=== PATIENT | male | born 1965 | race Caucasian/White ===

== ENCOUNTER → 2020-10-10 11:28 | Outpatient (BNVA) | payer OTHER, SELFPAY | PROVIDERS: Visit Provider Nurse Practitioner Family | DX: Z20.828 Contact with and (suspected) exposure to other viral communicable diseases (principal) | CPT/HCPCS: 87635 ==

== ENCOUNTER 2021-06-20 10:37 | Emergency (ER) | payer MEDICAID, SELFPAY ==
[2021-06-20 10:57] VITALS: BP 156/93; PULSE 81; RESP 16; TEMP 36.8; O2SAT 98; BMI 33.0
--- NOTE | 2021-06-20 11:02 | CT_ITS ---
WS: [id number] CT ABDOMEN AND PELVIS WITH CONTRAST HISTORY: RIGHT lower quadrant pain for 2 days. TECHNIQUE: Imaging performed of the abdomen and pelvis with IV contrast. Single phase imaging of the abdomen. Coronal and sagittal reformats are submitted. All CT scans at [facility] use at [address] one of these dose optimization techniques: automated exposure control; mA and/or kV adjustment per patient size (includes targeted exams where dose is matched to clinical indication); or iterative re construction. IV CONTRAST: Omnipaque 300; 95 mL IV. Oral contrast: No DLP: 1875.21 mGy.cm COMPARISON: None available. Lower thorax: Lung bases are clear. Heart is normal size. No hiatal hernia. Liver/biliary system: Normal size with no intrahepatic dilatation. Gallbladder: Normal. No gallstones or wall thickening. No pericholecystic fluid. Pancreas: Normal size pancreas and pancreatic duct. No adjacent inflammation. Spleen: Normal size spleen. No mass or infarct. Adrenal glands: Normal. Right kidney: Too small to characterize scattered hypodensities within the kidney. No obstruction or calcification. Left kidney: Too small to characterize hypodensities within the kidney. No obstruction or calcificati ons. No solid mass. Aorta: Mild atherosclerosis with no aneurysm. Lymphadenopathy: None. Free fluid: None. GI tract: 9 cm segment of sigmoid colon with circumferential wall thickening and pericolonic inflamma tion and numerous diverticula. No adjacent abscess or free air. The appendix is normal. No colonic ob struction. Abdominal wall: Postsurgical changes along the midline of the abdominal wall. No hernia. Pelvis: No free fluid or adenopathy within the pelvis. Bones: Unremarkable. CT/CT abdomen pelvis w con* [id number] IMPRESSION: 1. Acute sigmoid diverticulitis with no adjacent perforation or abscess. 2. Too small to characterize hypodensities within each kidney. These may be sm all cysts. No renal obstruction.
--- NOTE | 2021-06-20 11:03 | W.ED.ABDPA2 ---
HPI - Abdominal Pain General: Chief Complaint: Abdominal Pain Stated Complaint: RIGHT SIDE PAIN Time Seen by Provider: 06/20/21 10:39 History of Present Illness: HPI narrative: This patient is a 55-year-old male who presents to the emergency department for right lower quadrant abdominal pain. Patient states the pain started last week and he thought it was recurrent hernia on the right lower side. Patient was seen and examined local clinic and advised no hernia but was concerned for possible appendicitis. Patient was sent to the emergency department. Patient denies nausea vomiting. States loose stool this morning. States continues to hurt in the right lower quadrant. States he does not know if he has a fever but he felt real hot yesterday. Will do medical evaluation treat as needed MD elicited complaint: abdominal pain Pertinent past history: none Onset (ago): day(s) Pain Consistency: constant Location: RLQ Severity: moderate Radiation: none Migration to: no migration Exacerbating factors: nothing Relieving factors: nothing Associated Symptoms: Denies chills, dysuria, fever(s), nausea and vomiting Review of Systems General: Reports: 10 or more systems reviewed and unremarkable except in HPI and below Const: Denies: fever(s), chills, body aches or fatigue Eyes: Denies: change in vision or blurry vision ENMT: Denies: throat pain, hoarseness or mouth pain Card: Denies: chest pain, palpitations, irregular heart rhythm, edema, swelling of feet/ankles or lightheadedness Resp: Denies: dyspnea, productive cough, non-productive cough, wheezing or pain on inspiration GI: Reports: abdominal pain; Denies: nausea or vomiting : Denies: flank pain, dysuria, urinary frequency, urinary urgency or urinary hesitancy Musc: Denies: neck pain, back pain, extremity pain, extremity swelling, joint pain, joint swelling, joint redness, joint warmth or limited range of motion Skin/Breast: Denies: rash, pruritus, erythema or skin tenderness Neuro: Denies: headache(s), numbness in extremities or weakness in extremities Psych: Denies: anxiety or depression PFS ED PFSH: Social History Smoking and tobacco status: current every day smoker cigarettes Alcohol intake: never Physical Exam Const: COMMON NORMALS: no acute distress, average body habitus, patient oriented x3, no limitations, healthy appearing, alert and well nourished HENMT: COMMON NORMALS: normocephalic, atraumatic, hearing grossly normal bilaterally, external ears normal, EAC's normal, TM's normal bilaterally, Normal external nose present, Normal nasal mucous membranes and turbinates present, moist oral mucous membranes, oropharynx normal, dentition normal and gingiva normal HEAD & SCALP: normocephalic and atraumatic NOSE: Normal external nose present and Normal nasal mucous membranes and turbinates present EXTERNAL EAR: Yes external ears normal EXTERNAL AUDITORY CANAL: EAC's normal TYMPANIC MEMBRANE: TM's normal bilaterally Neck/C-Spine: COMMON NORMALS: full ROM, no lymphadenopathy, supple, no meningeal signs, no JVD, Thyroid normal and No carotid bruits THYROID: Thyroid normal Chest: COMMONS NORMALS: normal inspection of the chest, normal palpation of entire chest wall, normal inspection of the breasts and normal palpation of the breasts Breast/axilla inspection: Yes normal inspection of the breasts BREAST/AXILLA PALPATION: Yes normal palpation of the breasts Resp: COMMON NORMALS: normal respiratory effort, No retractions, No use of accessory muscles, clear to auscultation bilaterally and percussion normal AUSCULTATION: clear to auscultation bilaterally PERCUSSION: percussion normal Cardio: COMMON NORMALS: no JVD, regular rate, regular rhythm, S1 normal heart sound present, S2 normal heart sound present, No gallops present (Cardio), No clicks present (Cardio), No murmurs present (Cardio), No rub (Cardio) and Peripheral pulses 2+ throughout RATE: regular rate RHYTHM: regular rhythm HEART SOUNDS: S1 normal heart sound present and S2 normal heart sound present PERIPHERAL PULSES: Peripheral pulses 2+ throughout GI: COMMON NORMALS: Normal to inspection, nondistended, normoactive bowel sounds present, Soft to palpation, No hepatosplenomegaly present, no masses and no bruits PALPATION: Yes Soft to palpation, Yes Tenderness to palpation present (GI) Details: RLQ and Yes No hepatosplenomegaly present : COMMON NORMALS: Yes no CVA tenderness BLADDER/KIDNEY EXAM: Yes no CVA tenderness Back/Pelvis: COMMON NORMALS: no CVA tenderness, thoracic and lumbar spine normal to inspection, no thoracic nor lumbar tenderness, thoraco-lumbar ROM normal and straight leg raise negative bilaterally Extremity: COMMON NORMALS: normal to inspection, full ROM, capillary refill normal, no joint enlargement, no clubbing, cyanosis or edema, no calf tenderness and no pedal edema Neuro: COMMON NORMALS: patient oriented x3 SENSORIUM/ORIENTATION: Yes alert MENINGEAL SIGNS: Yes no meningeal signs Course Reevaluation(s): Reevaluation #1: . I did discuss at length with patient about findings. Patient be started on Cipro and Flagyl. Patient given pain medication. Patient should have a clear liquid diet until pain-free. Follow-up with primary care physician in 2 to 3 days. Encourage p.o. fluids. The patient does not have any improvement with her symptoms worsen should return back to the emergency department. Time: 12:02 Vital Signs: Vital signs: Vital Signs Temperature 98.2 F 06/20/21 10:57 Pulse Rate 88 06/20/21 11:26 Respiratory Rate 15 06/20/21 11:26 Blood Pressure 148/88 06/20/21 11:26 Pulse Oximetry 98 06/20/21 11:26 MDM - Abdominal Pain MDM Narrative: Medical decision making narrative: This patient is a 55-year-old male who presents to the emergency department for right lower quadrant abdominal pain. Patient states the pain started last week and he thought it was recurrent hernia on the right lower side. Patient was seen and examined local clinic and advised no hernia but was concerned for possible appendicitis. Patient was sent to the emergency department. Patient denies nausea vomiting. States loose stool this morning. States continues to hurt in the right lower quadrant. States he does not know if he has a fever but he felt real hot yesterday. Will do medical evaluation treat as needed . I did discuss at length with patient about findings. Patient be started on Cipro and Flagyl. Patient given pain medication. Patient should have a clear liquid diet until pain-free. Follow-up with primary care physician in 2 to 3 days. Encourage p.o. fluids. The patient does not have any improvement with her symptoms worsen should return back to the emergency department. Differential Diagnosis: Differential diagnosis abdominal pain: Likely abdominal pain, acute appendicitis, calculus of kidney, constipation, diverticulitis, endometriosis, gastroenteritis, pancreatitis and small bowel obstruction Medical Records: Attestation: I reviewed the patient's medical records. Lab Data: Attestation: I reviewed the patient's lab results. Labs: Lab Results 06/20/21 06/20/21 11:15 11:15 WBC 11.7 10^3/uL H 10 ^3/uL (4.0-10.0) RBC 5.36 10^6/uL H 10 ^6/uL (4.1-5.3) Hgb 15.6 g/dL g/dL (11.7-16.6) Hct 47.9 % % (42.0-52.0) MCV 89.4 fl fl (80-94) MCH 29.1 pg pg (28.0-34.0) MCHC 32.6 g/dL g/dL (30.0-36.0) RDW 13.2 % % (12.1-15.1) Plt Count 416 10^3/cmm H 10 ^3/cmm (130-400) MPV 10.0 fL fL (7.4-10.4) Neut % (Auto) 65.0 % % Lymph % (Auto) 24.0 % % [place] % (Auto) 8.0 % % Eos % (Auto) 1.5 % % Baso % (Auto) 0.6 % % Neut # (Auto) 7.63 10^3/uL 10^3 /uL (1.8-7.7) Lymph # (Auto) 2.8 10^3/uL 10^3/ uL (0.8-4.8) [place] # (Auto) 0.9 10^3/uL 10^3/ uL (0.2-0.9) Eos # (Auto) 0.2 10^3/uL 10^3/ uL (0.0-0.8) Baso # (Auto) 0.1 10^3/uL 10^3/ uL (0.0-0.1) Nucleated RBC % (a uto) 0 % % Nucleated RBCs # 0.0 /100WBC /100W BC Sodium 137 mmol/L mmol/L (136-145) Potassium 4.5 mmol/L mmol/L (3.5-5.1) Chloride 105 mmol/L mmol/L (98-107) Carbon Dioxide 22 mmol/L mmol/L (22-29) Anion Gap 14.5 (5-19) BUN 21 mg/dL H mg/dL (6-20) Creatinine 0.9 mg/dL mg/dL (0.7-1.2) GFR Calculation 87.3 mL/min L mL/ min (90-130) Glucose 133 mg/dL H mg/dL (65-115) Calculated Osmolal ity 289 mOsm/kg mOsm/ kg (285-295) Calcium 8.5 mg/dL mg/dL (8.5-10.5) Total Bilirubin 0.2 mg/dL mg/dL (0.15-1.2) AST 24 U/L U/L (0-40) ALT 36 U/L U/L (0-41) Alkaline Phosphata se 79 IU/L IU/L (40-130) Total Protein 7.7 g/dL g/dL (6.6-8.7) Albumin 4.0 g/dL g/dL (3.5-5.2) Globulin 3.7 g/dL g/dL (1.3-4.6) Imaging Data ^: CT Abd/Pel: Attestation: I personally reviewed and interpreted this imaging study as follows: Radiologist's impression: 1. Acute sigmoid diverticulitis with no adjacent perforation or abscess. 2. Too small to characterize hypodensities within each kidney. These may be small cysts. No renal obstruction. Discharge Plan Discharge Patient Disposition: Home Clinical Impression: Diverticulitis Condition: Stable Prescriptions: New hydrocodone-acetaminophen 5-325 mg tablet 1 tab PO Q6H PRN (Reason: pain) Qty: 7 RF: 0 metronidazole [Flagyl] 500 mg tablet 500 mg PO BID 7 Days Qty: 14 RF: 0 ciprofloxacin HCl [Cipro] 500 mg tablet 500 mg PO BID Qty: 20 RF: 0 diclofenac sodium 75 mg tablet,delayed release (DR/EC) 75 mg PO BID PRN (Reason: pain) Qty: 20 RF: 0 No Action diclofenac sodium 50 mg tablet,delayed release (DR/EC) 50 mg PO DAILY RF: 0 losartan 25 mg tablet 25 mg PO DAILY RF: 0 cyclobenzaprine 10 mg tablet 10 mg PO TID RF: 0 Discharge Orders: Discharge ED (Routine); Ordered 06/20/21 Ordered By: Pedro Moss Referrals: Vince Richard NP [Primary Care Provider] - Discharge Diet: Advance as tolerated Discharge Activity: Resume usual activity Patient Instructions: Opioid Safety Activity Restrictions/Additional Instructions: Patient be started on Cipro and Flagyl. Patient given pain medication. Patient should have a clear liquid diet until pain-free. Follow-up with primary care physician in 2 to 3 days. Encourage p.o. fluids. The patient does not have any improvement with her symptoms worsen should return back to the emergency department. Coding Level of Care Code ED Sales Agent Protective Service for Jonathan Garvin Exam Comprehensive
[2021-06-20] MEDS: ondansetron 2 mg/ML SDV 2 mL 4 MG IVP (11:25)
[2021-06-20] MEDS: sodium chloride 0.9% 500 ML IV (11:25)
[2021-06-20] MEDS: morphine 4 mg/mL SDV 1 mL IVP (11:25)
[2021-06-20 11:26] VITALS: BP 148/88; PULSE 88; RESP 15; O2SAT 98
[2021-06-20 11:28] LABS: Basophils # 0.1 10^3/uL (0.0-0.1); Basophils % 0.6 %; Eosinophils # 0.2 10^3/uL (0.0-0.8); Eosinophils % 1.5 %; Hematocrit 47.9 % (42.0-52.0); Hemoglobin 15.6 g/dL (11.7-16.6); Lymphocytes # 2.8 10^3/uL (0.8-4.8); Mean Corpuscular HGB Conc 32.6 g/dL (30.0-36.0); Mean Corpuscular Hemoglobin 29.1 pg (28.0-34.0); Mean Corpuscular Volume 89.4 fl (80-94); Monocytes # 0.9 10^3/uL (0.2-0.9); Neutrophils # 7.63 10^3/uL (1.8-7.7); Nucleated Red Blood Cells % 0 %; Platelet Count 416 10^3/cmm (130-400); Red Blood Count 5.36 10^6/uL (4.1-5.3); Red Cell Distribution Width 13.2 % (12.1-15.1); White Blood Count 11.7 10^3/uL (4.0-10.0)
[2021-06-20 11:48] LABS: Alanine Aminotransferase 36 U/L (0-41); Alkaline Phosphatase 79 IU/L (40-130); Anion Gap 14.5 (5-19); Blood Urea Nitrogen 21 mg/dL (6-20); Calcium 8.5 mg/dL (8.5-10.5); Carbon Dioxide 22 mmol/L (22-29); Chloride 105 mmol/L (98-107); Globulin 3.7 g/dL (1.3-4.6); Glomerular Filtration Rate 87.3 mL/min (90-130); Glucose 133 mg/dL (65-115); Osmolality Calculated 289 mOsm/kg (285-295); Potassium 4.5 mmol/L (3.5-5.1); Sodium 137 mmol/L (136-145); Total Bilirubin 0.2 mg/dL (0.15-1.2); Total Protein 7.7 g/dL (6.6-8.7)
[2021-06-20] MEDS: iohexol 300 mg/mL 100 mL Btl IV (11:48)
[2021-06-20 11:57] LABS: Aspartate Amino Transferase 24 U/L (0-40)
[2021-06-20] MEDS: levoFLOXacin 750 mg Tablet PO (12:21)
[2021-06-20] MEDS: metroNIDAZOLE 500 MG Tablet PO (12:21)
[2021-06-20 12:26] VITALS: BP 148/88; PULSE 88; RESP 15; O2SAT 98
== END 2021-06-20 12:26 | disposition home or self-care (01) ==
PROVIDERS: Emergency Provider Emergency Medicine; PCP Nurse Practitioner Family
DX: K57.92 Diverticulitis of intestine, part unspecified, without perforation or abscess without bleeding (principal); F17.210 Nicotine dependence, cigarettes, uncomplicated
CPT/HCPCS: 74177; 80053; 85025; 96361; 96374; 96375; 99284; J2270; J2405; J7040; Q9967

== ENCOUNTER 2021-09-10 06:26 | Emergency (ER) | payer MEDICAID, SELFPAY ==
[2021-09-10 06:46] VITALS: BP 155/80; PULSE 74; RESP 18; TEMP 36.5; O2SAT 98; BMI 30.9
--- NOTE | 2021-09-10 07:01 | XRR_ITS ---
PROCEDURE INFORMATION: Exam: XR Right Shoulder Exam date and time: 09/10/2021 7:01 AM Age: 56 years old Clinical indication: Right; Patient HX: PT fell a year ago and hurt the RT shoulder. There has been no recent injury but PT is experiencing pain the last month; Additional info: Pain fall TECHNIQUE: Imaging protocol: XR Right shoulder. Views: 2 or more views. COMPARISON: No relevant prior studies available. FINDINGS: Bones/joints: No acute fracture or dislocation. There is mild degenerative changes of the right acromioclavicular and glenohumeral joints, manifested by joint space narrowing and periarticular osteophytes. There is deformity of the right 4th rib, which may be congenital or secondary to previous trauma. Soft tissues: Normal. XR/XR shoulder RT min 2V* [id number] IMPRESSION: 1. No acute injury. 2. Mild degenerative changes of the right glenohumeral and acromioclavicular joints.
--- NOTE | 2021-09-10 07:01 | W.ED.EXTPRO ---
HPI - Extremity Problem General: Chief complaint: Extremity Problem,Nontraumatic Stated complaint: R SHOULDER PAIN/FALL Time Seen by Provider: 09/10/21 06:37 History of Present Illness: HPI Narrative: 56-year-old male presents emergency room complaint of right shoulder pain. He has had this pain for nearly a year and is been worse over the last month. He fell initially evidently and because it is not had any in-depth evaluation is not seen orthopedics he has taken various anti-inflammatories at this point is not taking anything for it he does not know what seems to have triggered it just recently here has significant discomfort when trying to AB duct extend or work above shoulder level. MD Complaint: joint pain Pain Consistency: intermittent Location: right (Shoulder) Quality: aching Relieving factors: rest Exacerbating factors: range of motion Associated symptoms: Deny chest pain or fever(s) Review of Systems Const: Denies: fever(s), chills, body aches, change in appetite, fatigue or malaise Card: Denies: chest pain, edema, dyspnea on exertion or orthopnea Resp: Denies: dyspnea, productive cough or non-productive cough GI: Denies: abdominal pain, nausea, vomiting, hematemesis, coffee ground emesis, diarrhea, constipation, bloating, hematochezia or melena : Denies: flank pain, dysuria, urinary frequency or urinary urgency PFS ED PFSH: Social History Smoking and tobacco status: current every day smoker cigarettes Alcohol intake: never Physical Exam Const: COMMON NORMALS: no acute distress GENERAL APPEARANCE: cooperative and comfortable ORIENTATION/CONSCIOUSNESS: Yes awake, Yes oriented to person, Yes oriented to place and Yes oriented to time HENMT: COMMON NORMALS: normocephalic, atraumatic and hearing grossly normal bilaterally HEAD & SCALP: normocephalic and atraumatic Neck/C-Spine: COMMON NORMALS: no JVD Resp: COMMON NORMALS: normal respiratory effort, No retractions, No use of accessory muscles and clear to auscultation bilaterally AUSCULTATION: clear to auscultation bilaterally Cardio: COMMON NORMALS: no JVD, regular rate, regular rhythm and No murmurs present (Cardio) RATE: regular rate RHYTHM: regular rhythm Extremity: NARRATIVE EXTREMITY EXAM: Right shoulder: Positive impingement sign pain with abduction and flexion. Neuro: SENSORIUM/ORIENTATION: Yes oriented to person, Yes oriented to place and Yes oriented to time Skin: COMMON NORMALS: no rashes or lesions noted GENERAL SKIN EXAM: no rashes or lesions noted Course Vital Signs: Vital signs: Vital Signs Temperature 97.7 F 09/10/21 06:46 Pulse Rate 74 09/10/21 06:46 Respiratory Rate 18 09/10/21 06:46 Blood Pressure 155/80 09/10/21 06:46 Pulse Oximetry 98 09/10/21 06:46 MDM - Extremity (Nontraumatic) MDM Narrative: Medical decision making narrative: No work above shoulder level no lifting greater than 10 pounds start diclofenac follow-up with Ortho Discharge Plan Discharge Patient Disposition: Home Clinical Impression: Acute pain of right shoulder Condition: Stable Prescriptions: New diclofenac sodium 75 mg tablet,delayed release (DR/EC) 75 mg PO Q12H PRN (Reason: pain) Qty: 20 RF: 0 Discontinued diclofenac sodium 50 mg tablet,delayed release (DR/EC) 50 mg PO DAILY RF: 0 hydrocodone-acetaminophen 5-325 mg tablet 1 tab PO Q6H PRN (Reason: pain) Qty: 7 RF: 0 ciprofloxacin HCl [Cipro] 500 mg tablet 500 mg PO BID Qty: 20 RF: 0 diclofenac sodium 75 mg tablet,delayed release (DR/EC) 75 mg PO BID PRN (Reason: pain) Qty: 20 RF: 0 No Action losartan 25 mg tablet 25 mg PO DAILY RF: 0 cyclobenzaprine 10 mg tablet 10 mg PO TID RF: 0 Discharge Orders: Discharge ED (Routine); Ordered 09/10/21 Ordered By: Hung Metcalf Referrals: Vince Richard NP [Primary Care Provider] - Patient Instructions: Opioid Safety Activity Restrictions/Additional Instructions: social media marketing manager will make an appointment for you to see the orthopedist. No lifting greater than 10 pounds with the affected arm do not work above shoulder level. Coding Level of Care Code ED Consultant Nurse for Jonathan Garvin
--- NOTE | 2021-09-11 11:09 | PC.SOCIAL ---
referral received from Dr Metcalf for Ortho appt. Called Lita at Ortho and they will review chart and call patient with appt.
--- NOTE | 2021-09-14 05:39 | DCPLANNER ---
Addendum entered by Dennise Tompkins 12/28/21 08:36: Patient had an appointment scheduled for 12.05.21 at ortho - patient did attend appointment. Original Note: Patient has a followup appointment scheduled for November 14 at 1:[address] Thayer at ortho. Patient has been placed on a cancelation list. Clinic will call patient with appointment information.
== END 2021-09-10 07:30 | disposition home or self-care (01) ==
PROVIDERS: Emergency Provider Family Medicine; PCP Nurse Practitioner Family
DX: M25.511 Pain in right shoulder (principal); F17.210 Nicotine dependence, cigarettes, uncomplicated; Z79.891 Long term (current) use of opiate analgesic
CPT/HCPCS: 73030; 99282

== ENCOUNTER → 2021-12-05 10:40 | Outpatient (BNVA) | payer MEDICAID, SELFPAY | PROVIDERS: PCP Nurse Practitioner Family; Referring Provider Family Medicine; Visit Provider Specialist | DX: M19.011 Primary osteoarthritis, right shoulder (principal) | CPT/HCPCS: 73030 ==

== ENCOUNTER → 2022-01-16 09:21 | Outpatient (BNVA) | payer MEDICAID, SELFPAY | PROVIDERS: PCP Nurse Practitioner Family; Visit Provider Specialist | DX: M19.011 Primary osteoarthritis, right shoulder; F17.210 Nicotine dependence, cigarettes, uncomplicated | CPT/HCPCS: 20610; 73030; 99213; J1100; J2795; J3301 ==

== ENCOUNTER → 2022-04-17 13:13 | Outpatient (BNVA) | payer MEDICAID, SELFPAY | PROVIDERS: PCP Nurse Practitioner Family; Visit Provider Specialist | DX: M19.011 Primary osteoarthritis, right shoulder (principal) | CPT/HCPCS: 99213 ==

== ENCOUNTER → 2022-04-25 14:00 | Outpatient (BNVA) | payer MEDICAID, SELFPAY | PROVIDERS: PCP Nurse Practitioner Family; Visit Provider Orthopaedic Surgery | DX: M47.816 Spondylosis without myelopathy or radiculopathy, lumbar region (principal); M54.50 Low back pain, unspecified | CPT/HCPCS: 72110; 99204 ==

== ENCOUNTER 2022-07-19 08:19 | Outpatient (CLI) | payer MEDICAID, SELFPAY ==
--- NOTE | 2022-07-19 08:45 | MR_ITS ---
WS: [id number] MRI RIGHT SHOULDER NONCONTRAST TECHNIQUE: Sagittal T2, coronal T1, T2 and proton density imaging. Axial gradient PDE imaging. CLINICAL INFORMATION: M25.511 - Pain in right shoulder COMPARISON: None. FINDINGS: Advanced degenerative arthritis AC joint with subchondral cystic change. Moderate downsloping acromio n. Impingement on the distal supraspinatus. No significant subacromial or subdeltoid fluid. Marked narrowing of the subacromial space with impingement on the distal supraspinatus. Slight subacr omial spurring. Severe chronic thinning of the distal supraspinatus tendon with tendinopathy and smal l insertional tear. Normal infraspinatus. Normal teres minor Marked chronic thinning of the subscapularis likely due to prior chronic tear. Tiny remnant biceps te ndon in the bicipital groove presumably due to chronic tear. Intra-articular biceps tendon not visual ized likely chronically torn. [place] complex or chronic tear of the anterior superior labrum. Posteri or labrum appears grossly intact. Normal bone marrow signal in the glenoid. MR/MR shoulder RT wo con* [id number] IMPRESSION: 1. Advanced degenerative arthritis at the AC joint with mild edema and subchon dral cystic change. Narrowing of the subacromial space. 2. Marked thinning of the distal supraspinatus with tendinopathy and a tiny in sertional tear. 3. Normal infraspinatus and teres minor. 4. Diffuse chronic appearing thinning of the subscapularis likely due to prior tear. 5. Near absence of the biceps tendon in the bicipital groove with only a tiny remnant. Intra-articular biceps tendon not visualized likely chronically torn. 6. [place] complex or chronic tear of the anterior superior labrum.
== END 2022-07-19 08:20 | disposition home or self-care (01) ==
LOC: RAD 08:20
PROVIDERS: PCP Nurse Practitioner Family; Visit Provider Specialist
DX: M19.011 Primary osteoarthritis, right shoulder (principal); S43.431A Superior glenoid labrum lesion of right shoulder, initial encounter
CPT/HCPCS: 73221

== ENCOUNTER 2022-08-27 07:40 | Outpatient (CLI) | payer MEDICAID, SELFPAY ==
--- NOTE | 2022-08-27 07:46 | CT_ITS ---
WS: [id number] LDCT LUNG CANCER SCREENING TECHNIQUE: Noncontrast CT of the chest with coronal and sagittal reformatted images. CLINICAL INFORMATION: TOBACCO USE COMPARISON: None. DLP: 79.20 mGy.cm DIvol: Mean CTDIvol: 1.60 (mGy) All CT scans at [facility] use at least one of these dose optimization techniques: automat ed exposure control; mA and/or kV adjustment per patient size (includes targeted exams where dose is matched to clinical indication); or iterative reconstruction. FINDINGS: Mild aortic calcification. Normal caliber thoracic aorta. No mediastinal or hilar lymphadenopathy. Co ronary calcification. No axillary lymphadenopathy. Adrenal glands are normal. Normal GE junction. Mild thoracic kyphosis. M ild spondylitic changes thoracic spine. Tiny 3 mm subpleural nodule RIGHT lower lobe laterally CT/CT lung screening [id number] IMPRESSION: LUNG-RADS: 2-Benign Appearance or Behavior FOLLOW UP: 12 Month: Continue annual screening with LDCT
== END 2022-08-27 07:41 | disposition home or self-care (01) ==
LOC: RAD 07:40
PROVIDERS: PCP Nurse Practitioner Family; Visit Provider Family Medicine
DX: Z12.2 Encounter for screening for malignant neoplasm of respiratory organs (principal); F17.210 Nicotine dependence, cigarettes, uncomplicated
CPT/HCPCS: 71271

== ENCOUNTER 2022-10-31 07:47 | Outpatient (CLI) | payer MEDICAID, SELFPAY ==
--- NOTE | 2022-10-31 08:00 | MR_ITS ---
WS: [id number] MRI LUMBAR SPINE NONCONTRAST HISTORY: M54.9 - Dorsalgia, unspecified COMPARISON: None available. TECHNIQUE: Sagittal and axial multisequence imaging is submitted. Normal lumbar alignment with no compression fractures or marrow edema. Mild disc desiccation without narrowing. No marrow edema or fracture. Conus terminates normally at L1. L1-L2: Normal. L2-L3: Mild facet and ligamentum flavum disease. No stenosis or disc protrusion. L3-L4: Mild annular disc bulge with a central disc protrusion contacting and deforming the ventral th ecal sac. Moderate central with bilateral subarticular recess stenosis. Mild bilateral foraminal sten osis. Most significant contact on the traversing L4 nerve roots. L4-L5: Mild annular disc bulge. LEFT paracentral disc protrusion with annular fissure. There is signi ficant effacement of fat in the LEFT subarticular recess. Moderate LEFT and mild RIGHT foraminal sten osis. Mild central and RIGHT subarticular recess stenosis. Moderate to severe LEFT subarticular reces s. L5-S1: Mild disc bulging with facet joint arthritis. Effacement of fat in the RIGHT foramen is a comb ination of disc disease with possible protrusion, ligamentum flavum and facet arthritis. Moderate to severe RIGHT foraminal stenosis with significant encroachment upon the RIGHT L5 nerve root. Mild LEFT foraminal stenosis. Very minimal disc contacting the LEFT L5 nerve root. Paravertebral soft tissues are negative. MR/MR lumbar spine wo con* [id number] IMPRESSION: 1. Moderate central and bilateral subarticular recess stenosis at L3-4. Centra l disc protrusion also contributing to stenosis deformity of the thecal sac. Si gnificant disc contact on the L4 nerve roots. 2. LEFT paracentral disc protrusion at L4-5. Moderate to severe LEFT subarticu lar recess stenosis at L4-5 due to combination of disc and facet joint arthriti s. 3. Mild central, RIGHT subarticular recess and RIGHT foraminal stenosis at L4- 5. 4. Moderate to severe RIGHT foraminal stenosis at L5-S1. Significant encroachm ent upon the RIGHT L5 nerve root. Probably combination of disc and possible pro trusion with facet arthritis.
== END 2022-10-31 07:48 | disposition home or self-care (01) ==
LOC: RAD 07:49
PROVIDERS: PCP Nurse Practitioner Family; Visit Provider Orthopaedic Surgery
DX: M54.9 Dorsalgia, unspecified (principal); M48.061 Spinal stenosis, lumbar region without neurogenic claudication; M48.07 Spinal stenosis, lumbosacral region
CPT/HCPCS: 72148

== ENCOUNTER → 2023-05-28 12:16 | Outpatient (BNVA) | payer MEDICAID, SELFPAY | PROVIDERS: PCP Nurse Practitioner Family; Referring Provider Family Medicine; Visit Provider Internal Medicine | DX: R07.9 Chest pain, unspecified (principal) | CPT/HCPCS: 93005 ==

== ENCOUNTER 2023-06-12 08:01 | Outpatient (CLI) | payer MEDICAID, SELFPAY ==
--- NOTE | 2023-06-12 08:45 | USCV_ITS ---
LovellChalino Age: 57 Gender: M : 1965 Exam Date: 06/12/2023 08:19 Ordering Phys: Elia Cross M.D ([email or web address]) Technologist: Paola Juan [place]am [place] [facility] [place] [facility] [place]ication: SOB BP: 158 / 91 HR: 62 Rhythm: PACs Technical Quality: Good MEASUREMENTS (Male / Female) Normal Values 2D ECHO LV Diastolic Diameter PLAX 4.4 cm 4.2 - 5.9 / 3.9 - 5.3 cm LV Systolic Diameter PLAX 2.0 cm IVS Diastolic Thickness 1.5 cm 0.6 - 1.0 / 0.6 - 0.9 cm IVS Systolic Thickness 2.4 cm LVPW Diastolic Thickness 1.1 cm 0.6 - 1.0 / 0.6 - 0.9 cm LVPW Systolic Thickness 1.8 cm LVOT Diameter 2.1 cm LV Ejection Fraction 2D Teich 86.2 % LV Ejection Fraction MOD 2C 53.6 % LV Ejection Fraction 2C AL 52.4 % LA Diameter 2.5 cm LA Width 3.3 cm LA Height 5.4 cm RA Width 2.9 cm RA Height 5.5 cm Aorta at Sinotubular Diameter 3.1 cm IVC Diameter 1.4 cm M-MODE Aortic Annulus Diameter 3.0 cm LA Ao Ratio MM 1.0 MV E Point Septal Separation 0.7 cm DOPPLER AV Peak Velocity 144.0 cm/s LVOT Peak Velocity 122.0 cm/s AV Area Cont Eq vti 2.6 cm squared AV Area Cont Eq pk 2.9 cm squared MV Peak Velocity 90.0 cm/s MV Area PHT 2.9 cm squared Mitral E to A Ratio 1.1 MV E' Velocity 41.0 cm/s Mitral E to MV E' Ratio 9.5 Mitral E to LV E' Lateral Ratio 7.5 Mitral E to LV E' Septal Ratio 12.9 TR Peak Velocity 93.3 cm/s TR Peak Gradient 3.5 mmHg Right Atrial Pressure 5.0 mmHg Pulmonary Artery Systolic Pressu 8.5 mmHg PV Peak Velocity 81.0 cm/s RV Acceleration Time 0.2 s RV Ejection Time 0.3 s RV AcT/ET 0.5 FINDINGS Left Ventricle Ventricle is normal in size. LV systolic function is normal with EF 55 to 60%. No regional wall motion abnormalities are seen. Right Ventricle Normal in size and function Right Atrium Normal in size Left Atrium Normal in size Mitral Valve Structurally normal mitral valve. Mild mitral regurgitation. Aortic Valve Structurally normal aortic valve. No significant stenosis or regurgitation. Tricuspid Valve Mild tricuspid regurgitation. Insufficient TR jet to calculate RVSP. Pulmonic Valve Not well-visualized Pericardium Normal Aorta Normal in size IVC Appears to be normal CONCLUSIONS LV systolic function is normal with EF of 55-60% Mild mitral regurgitation Mild tricuspid regurgitation No comparison studies are available. Elia Cross MD (Electronically Signed) Final Date: 22 June 2023 11:45 S
== END 2023-06-12 08:02 | disposition home or self-care (01) ==
PROVIDERS: PCP Nurse Practitioner Family; Visit Provider Internal Medicine
DX: I08.1 Rheumatic disorders of both mitral and tricuspid valves (principal); R06.02 Shortness of breath
CPT/HCPCS: 93306

== ENCOUNTER 2023-08-06 10:00 | Outpatient (CLI) | payer MEDICAID, SELFPAY ==
--- NOTE | 2023-08-06 10:04 | XR_ITS ---
WS: [id number] Exam: XR lumbar spine 2-3V* [id number] Date/Time of Exam: 08/06/2023 10:44 AM Reason For Exam: DDD Comparison 04/25/2022. No fracture or dislocation noted. Facet arthropathy at L4-5 and L5-S1. Mild spondylosis. Disc spaces are relatively well-maintained. No significant scoliosis. IMPRESSION: 1. Facet arthropathy at L4-5 and L5-S1. 2. No fracture or malalignment. No change since previous study.
== END 2023-08-06 10:01 | disposition home or self-care (01) ==
LOC: RAD 10:01
PROVIDERS: PCP Family Medicine; Visit Provider Family Medicine
DX: M51.36 Other intervertebral disc degeneration, lumbar region (principal); M47.816 Spondylosis without myelopathy or radiculopathy, lumbar region; M47.817 Spondylosis without myelopathy or radiculopathy, lumbosacral region
CPT/HCPCS: 72100

== ENCOUNTER 2023-08-28 10:55 | Outpatient (CLI) | payer MEDICAID, SELFPAY ==
--- NOTE | 2023-08-28 11:15 | CT_ITS ---
WS: [id number] LDCT LUNG CANCER SCREENING HISTORY: HX OF TOBACCO USE TECHNIQUE: Axial imaging performed from the apices to 1 cm below the costophrenic angles. Coronal and sagittal reformats are submitted with axial MIP series. All CT scans at [facility] use at least one of these dose optimization techniques: automated exposure control; mA and/or kV adjustment per patient size (includes targeted exams where dose is matched to clinical indication); or iterativ e reconstruction. DLP: 120.29 mGy.cm DIvol: Mean CTDIvol: 2.70 (mGy) COMPARISON: 08/27/2022 Diagnostic quality: Satisfactory Lungs: No change in the 3 mm RIGHT lower lobe noncalcified nodule. There are a few additional small m icronodules. No masses. No new nodule. No endobronchial lesions. Heart: Normal size heart with no pericardial effusion.. Mild scattered coronary artery calcifications . Other findings: Mild atherosclerosis aorta. No aneurysm. No mediastinal or hilar adenopathy. No adren al mass. IMPRESSION: CT/CT lung screening [id number] LUNG-RADS: 2-Benign Appearance or Behavior FOLLOW UP: 12 Month: Continue annual screening with LDCT OTHER FINDINGS (S MODIFIER): None.
== END 2023-08-28 10:56 | disposition home or self-care (01) ==
LOC: RAD 10:55
PROVIDERS: PCP Family Medicine; Visit Provider Family Medicine
DX: Z12.2 Encounter for screening for malignant neoplasm of respiratory organs (principal); Z87.891 Personal history of nicotine dependence
CPT/HCPCS: 71271

== ENCOUNTER 2023-11-11 13:34 | Outpatient (CLI) | payer MEDICAID, SELFPAY ==
--- NOTE | 2023-11-11 14:15 | USCV_ITS ---
Chalino Lovell Age: 58 Gender: M : 1965 Exam Date: 11/11/2023 13:53 Ordering Phys: Elia Cross M.D ([email or web address]) Technologist: CT [place]am [place] [facility] [place]: stenosis Risk Factors: Previous Vascular Surgery: Right Brachial BP: / Left Brachial BP: / Right Left Velocity (cm/s) Spectral Plaque Velocity (cm/s) Spectral Plaque Syst/Diast Broadening Syst/Diast Broadening 112.60/27.40 Prox CCA 99.00 / 26.90 112.60/34.30 Mid CCA 111.60/ 25.10 74.90/ 22.70 Distal CCA 77.40 / 19.70 69.60/ 21.40 Prox ICA 108.70/ 43.30 74.00/ 32.80 Mid ICA 121.80/ 54.20 63.50/ 26.00 Distal ICA 89.10 / 27.90 140.00 ECA 113.00 0.60 ICA/CCA 1.09 Antegrade Vertebral Antegrade 47.60/ 14.40 cm/s 48.80/ 21.60 cm/s Tri Subclavian Bi CONCLUSIONS Right ICA stenosis <50%. Moderate atheromatous plaque right carotid bulb/ICA. Left ICA stenosis <50% at the upper end of the range. Moderate atheromatous plaque left carotid bulb/ICA. Normal antegrade Doppler flow noted in the right vertebral artery. Normal antegrade Doppler flow noted in the left vertebral artery. Luis Diaz MD (Electronically Signed) Final Date: 11 November 2023 15:02 S
== END 2023-11-11 13:35 | disposition home or self-care (01) ==
LOC: RAD 13:34
PROVIDERS: PCP Nurse Practitioner Family; Visit Provider Internal Medicine
DX: I65.23 Occlusion and stenosis of bilateral carotid arteries (principal)
CPT/HCPCS: 93880

== ENCOUNTER → 2024-06-14 08:04 | Outpatient (BNVA) | payer MEDICAID, SELFPAY | PROVIDERS: PCP Family Medicine; Visit Provider Specialist | DX: M19.011 Primary osteoarthritis, right shoulder (principal) | CPT/HCPCS: 73030 ==

== ENCOUNTER 2024-08-26 08:22 | Emergency (ER) | payer MEDICAID, SELFPAY ==
[2024-08-26 08:25] VITALS: BP 154/96; PULSE 70; RESP 18; TEMP 36.8; O2SAT 94; BMI 31.6
--- NOTE | 2024-08-26 08:31 | XRR_ITS ---
PROCEDURE INFORMATION: Exam: XR Chest Exam date and time: 08/26/2024 8:50 AM Age: 59 years old Clinical indication: Cough and dyspnea; Additional info: Dyspnea/cough TECHNIQUE: Imaging protocol: Radiologic exam of the chest. Views: 1 view. COMPARISON: CT lung screening [id number] 08/28/2023 11:27 AM FINDINGS: Lungs: Unremarkable. No consolidation. Pleural spaces: Unremarkable. No pleural effusion. No pneumothorax. Heart/Mediastinum: Unremarkable. No cardiomegaly. Bones/joints: There is a right 4th rib deformity again noted. XR/XR chest 1V portable [id number] IMPRESSION: No evidence of acute pulmonary process.
--- NOTE | 2024-08-26 08:37 | CT_ITS ---
WS: [id number] CT ABDOMEN PELVIS TECHNIQUE: Noncontrast CT of the abdomen and pelvis with coronal and sagittal reformatted images. CLINICAL INFORMATION: Abdominal pain COMPARISON: 2020 DLP: 1021.[address] scans at [facility] use at least one of these dose optimization techniques: automated e xposure control; mA and/or kV adjustment per patient size (includes targeted exams where dose is matc hed to clinical indication); or iterative reconstruction. FINDINGS: Lung bases are well aerated. Normal noncontrast liver. Normal noncontrast spleen and gallbl adder. Normal GE junction. Adrenal glands are normal. Low-attenuation lesion RIGHT kidney unchanged l ikely small renal cyst. No hydronephrosis in either kidney. Sigmoid diverticulosis. No evidence of acute diverticulitis. Normal appendix. Small fat-containing um bilical hernia. No ventral abdominal wall hernia. Central disc protrusion L3-4 with at least moderate central canal stenosis appears stable since 2020. Prominent prostate measuring 3.[address]/CT abdomen pelvis wo con [id number] IMPRESSION: No acute findings in the abdomen or pelvis
--- NOTE | 2024-08-26 08:39 | ED_ITS ---
HPI - Abdominal Pain 2 General: Chief Complaint: Abdominal Pain Stated Complaint: abd pain Time Seen by Provider: 08/26/24 08:30 History of Present Illness: 59-year-old male presents emergency room complaining abdominal pain. Few days ago he was sitting up and twisting and had some sharp pain in the area of previous umbilical hernia. He states his continued to hurt since then. Has not had any vomiting he has had very loose stools no hematochezia or melena Associated Symptoms: Denies chills, dysuria and fever(s) Related Data Home Medications Medication Instructions Recorded Confirmed losartan 25 mg tablet 25 mg PO DAILY 10/10/20 08/26/24 atorvastatin 20 mg tablet 20 mg PO DAILY 05/28/23 08/26/24 epinephrine 0.3 mg/0.3 mL 0.3 mg IM Q4H PRN Allergic Reaction 05/28/23 08/26/24 injection, auto-injector albuterol sulfate 90 mcg/actuation 1 - 2 puff inhalation Q4H PRN 08/26/24 08/26/24 aerosol inhaler (Ventolin HFA) Wheezing Previous Rx's Medication Instructions Recorded diclofenac sodium 75 mg 75 mg PO Q12H PRN pain #20 tabs 09/10/21 tablet,delayed release metoprolol tartrate 25 mg tablet 12.5 mg (1/2 x 25 mg) PO BID #90 06/28/24 tabs Allergies Allergy/AdvReac Type Severity Reaction Status Date / Time aspirin Allergy Intermediate hives Verified 06/14/24 09:17 Review of Systems 2 Const: Denies: fever(s) or chills Card: Denies: chest pain Resp: Denies: dyspnea GI: Denies: abdominal pain : Denies: dysuria, urinary frequency or urinary urgency Musc: Denies: neck pain or back pain Skin/Breast: Denies: rash PFSH ED 2 PFSH: Social History Smoking and tobacco/nicotine status: current every day tobacco/nicotine user cigarettes Alcohol intake: never Substance/Drug Use: never Physical Exam 2 Const: ORIENTATION/CONSCIOUSNESS: Yes awake, Yes oriented to person, Yes oriented to place and Yes oriented to time HENMT: COMMON NORMALS: normocephalic, atraumatic and hearing grossly normal bilaterally HEAD & SCALP: normocephalic and atraumatic Resp: COMMON NORMALS: normal respiratory effort, No retractions, No use of accessory muscles and clear to auscultation bilaterally AUSCULTATION: clear to auscultation bilaterally Cardio: COMMON NORMALS: regular rate, regular rhythm and No murmurs present (Cardio) RATE: regular rate RHYTHM: regular rhythm GI: COMMON NORMALS: Soft to palpation and No hepatosplenomegaly present A USCULTATION: Yes normoactive bowel sounds PALPATION: Yes Soft to palpation, No Tenderness to palpation present (GI), No Guarding due to palpation present (GI) and Yes No hepatosplenomegaly present OTHER: No palpable hernias around the umbilicus or her inguinal areas at this time. Extremity: COMMON NORMALS: normal to inspection, capillary refill normal, no clubbing, cyanosis or edema, no calf tenderness and no pedal edema Neuro: SENSORIUM/ORIENTATION: Yes oriented to person, Yes oriented to place and Yes oriented to time Skin: COMMON NORMALS: no rashes or lesions noted GENERAL SKIN EXAM: no rashes or lesions noted Course 2 Vital Signs: Vital signs: Vital Signs Temperature 98.3 F 08/26/24 08:25 Pulse Rate 69 08/26/24 11:07 Respiratory Rate 18 08/26/24 08:25 Blood Pressure 149/72 08/26/24 11:07 Pulse Oximetry 98 08/26/24 11:07 Oxygen Delivery Me thod Room Air 08/26/24 11:03 MDM - Abdominal Pain Medical Decision Making CT shows umbilical hernia. I discussed with Dr. Diaz who had read the films, he feels it is approximately the same as it was several years ago and he had another 1 done. There is no bowel involved. I think his discomfort is probably from tear or irritation along the site of his previous hernia repair there is no hernia defect at this time he does not have anything that is strangulated. Will discharge patient home can follow-up with his primary care doctor diclofenac as needed. Medical Records I reviewed the patient's medical records. Lab Data I reviewed the patient's lab results. 08/26/24 08:44 08/26/24 08:44 Labs/Radiology: Radiology Impressions Chest X-Ray 08/26/24 08:31 IMPRESSION: No evidence of acute pulmonary process. Abdomen/Pelvis CT 08/26/24 08:37 IMPRESSION: No acute findings in the abdomen or pelvis Laboratory Results WBC 8.15 10^3/uL (3.29-11.43) 08/26/24 08:44 RBC 5.04 10^6/uL (3.85-5.65) 08/26/24 08:44 Hgb 15.20 g/dL (11.27-16.99) 08/26/24 08:44 Hct 46.4 % (37-53) 08/26/24 08:44 MCV 92.1 fl (82-101) 08/26/24 08:44 MCH 30.2 pg (27-33) 08/26/24 08:44 MCHC 32.8 g/dL (30-55) 08/26/24 08:44 RDW 12.7 % (12.1-15.1) 08/26/24 08:44 Plt Count 310 10^3/cmm (157-399) 08/26/24 08:44 MPV 9.9 fL (7.4-10.4) 08/26/24 08:44 Neut % (Auto) 73.5 % 08/26/24 08:44 Lymph % (Auto) 8.8 % 08/26/24 08:44 [place] % (Auto) 6.3 % 08/26/24 08:44 Eos % (Auto) 9.8 % 08/26/24 08:44 Baso % (Auto) 0.9 % 08/26/24 08:44 Neut # (Auto) 5.99 10^3/uL (1.8-7.7) 08/26/24 08:44 Lymph # (Auto) 0.7 10^3/uL (0.8-4.8) L 08/26/24 08:44 [place] # (Auto) 0.5 10^3/uL (0.2-0.9) 08/26/24 08:44 Eos # (Auto) 0.8 10^3/uL (0.0-0.8) 08/26/24 08:44 Baso # (Auto) 0.1 10^3/uL (0.0-0.1) 08/26/24 08:44 Nucleated RBC % (auto) 0 % 08/26/24 08:44 Nucleated RBCs # 0.0 /100WBC 08/26/24 08:44 Sodium 137 mmol/L (136-145) 08/26/24 08:44 Potassium 4.5 mmol/L (3.5-5.1) 08/26/24 08:44 Chloride 103 mmol/L (98-107) 08/26/24 08:44 Carbon Dioxide 26 mmol/L (22-29) 08/26/24 08:44 Anion Gap 12.5 (5-19) 08/26/24 08:44 BUN 12 mg/dL (8-23) 08/26/24 08:44 Creatinine 1.3 mg/dL (0.7-1.2) H 08/26/24 08:44 GFR Calculation 56.3 mL/min (90-130) L 08/26/24 08:44 Glucose 94 mg/dL (65-115) 08/26/24 08:44 Calculated Osmolality 284 mOsm/kg (285-295) L 08/26/24 08:44 Calcium 8.9 mg/dL (8.5-10.5) 08/26/24 08:44 Total Bilirubin 0.3 mg/dL (0.15-1.2) 08/26/24 08:44 AST 14 U/L (0-40) 08/26/24 08:44 ALT 16 U/L (0-41) 08/26/24 08:44 Alkaline Phosphatase 90 U/L (40-130) 08/26/24 08:44 Total Protein 6.8 g/dL (6.6-8.7) 08/26/24 08:44 Albumin 3.8 g/dL (3.5-5.2) 08/26/24 08:44 Globulin 3.0 g/dL (1.3-4.6) 08/26/24 08:44 Lipase 53 U/L (13-60) 08/26/24 08:44 Urine Color Yellow (Yellow) 08/26/24 09:29 Urine Appearance Turbid (CLEAR) A 08/26/24 09: Urine pH 5.5 (5-7) 08/26/24 09: Ur Specific [place] 1.020 (1.005-1.030) 08/26/24 09:29 Urine Protein 1+ (Negative) A 08/26/24 09: Urine Glucose (UA) Negative (Normal) 08/26/24 09:29 Urine Ketones Trace (Negative) 08/26/24 09:29 Urine Blood Negative (Negative) 08/26/24 09: Urine Nitrate Negative (Negative) 08/26/24 09: Urine Bilirubin Negative (Negative) 08/26/24 09:29 Urine Urobilinogen 1.0 mg/dL (Negative) 08/26/24 09:29 Ur Leukocyte Esterase Trace (Negative) A 08/26/24 09:29 Urine RBC 0-2 /hpf (0-2) 08/26/24 09:29 Urine WBC 0-5 /hpf (0-5) 08/26/24 09:29 Ur Squamous Epith Cells 11-20 /hpf (0-5) 08/26/24 09:29 Amorphous Sediment Not Reportable 08/26/24 09: Urine Bacteria None seen /hpf (NONE) 08/26/24 09: Hyaline Casts 6.61 /lpf 08/26/24 09:29 All radiology interpretation(s) finalized by discharge Discharge Plan Discharge Patient Disposition: Home Clinical Impression: Abdominal wall strain Condition: Stable Prescriptions: No Action losartan 25 mg tablet 25 mg PO DAILY atorvastatin 20 mg tablet 20 mg PO DAILY epinephrine 0.3 mg/0.3 mL auto-injector 0.3 mg IM Q4H PRN (Reason: Allergic Reaction) metoprolol tartrate 25 mg tablet 12.5 mg PO BID Qty: 90 0RF diclofenac sodium 75 mg tablet,delayed release (DR/EC) 75 mg PO Q12H PRN (Reason: pain) Qty: 20 0RF albuterol sulfate [Ventolin HFA] 90 mcg/actuation HFA aerosol inhaler 1 - 2 puff INHALATION Q4H PRN (Reason: Wheezing) Discharge Orders: Discharge ED (Routine); Ordered 08/26/24 Ordered By: Hung Metcalf Referrals: Jonatan Tenorio MD [Primary Care Provider] - Discharge Diet: Usual diet Discharge Activity: Resume usual activity Patient Instructions: Opioid Safety, Pain Management Activity Restrictions/Additional Instructions: Thank you for choosing [facility] for your healthcare needs today. It is very important that you follow up as instructed or that you return to the Emergency Department should you have concerns or if your condition changes or worsens in any way. You are seen in the emergency room with complaint of abdominal wall pain that began after you twisted. CT done today showed a very tiny umbilical hernia which is unchanged from 2020. Suspect that you strained the abdominal wall. Since there is no significant change in hernia I do not think this is a new finding. It only contains fat so there is no treatment for this at this point. Coding Level of Care Code ED Manager Editorial for Jonathan Garvin
--- NOTE | 2024-08-26 08:47 | ECG_ITS ---
[facility]24[facility] Pat Name: Chalino Lovell Department: Room: Gender: Male Sanitarian: : 1965 Requested By: Hung Botello Order Number: [id number] Grayson MD: Elia Cross M.D. Measurements Intervals Harper Rate: 61 P: 58 SD: 149 QRS: 58 QRSD: 89 T: 53 QT: 387 QTc: 392 Interpretive Statements SINUS RHYTHM Compared to ECG 05/28/2023 12:23:51 No significant changes Electronically Signed On 08-26-2024 14:40:53 CYTOLOGY TECHNOLOGIST by Elia Cross M.D. [email or web address]
[2024-08-26 08:50] LABS: Basophils # 0.1 10^3/uL (0.0-0.1); Basophils % 0.9 %; Eosinophils # 0.8 10^3/uL (0.0-0.8); Eosinophils % 9.8 %; Hematocrit 46.4 % (37-53); Lymphocytes # 0.7 10^3/uL (0.8-4.8); Lymphocytes % 8.8 %; Mean Corpuscular HGB Conc 32.8 g/dL (30-55); Mean Corpuscular Hemoglobin 30.2 pg (27-33); Mean Corpuscular Volume 92.1 fl (82-101); Mean Platelet Volume 9.9 fL (7.4-10.4); Monocytes # 0.5 10^3/uL (0.2-0.9); Monocytes % 6.3 %; Neutrophils # 5.99 10^3/uL (1.8-7.7); Neutrophils % 73.5 %; Nucleated Red Blood Cells % 0 %; Platelet Count 310 10^3/cmm (157-399); Red Blood Count 5.04 10^6/uL (3.85-5.65); Red Cell Distribution Width 12.7 % (12.1-15.1); White Blood Count 8.15 10^3/uL (3.29-11.43)
[2024-08-26 09:14] LABS: Alanine Aminotransferase 16 U/L (0-41); Albumin Level 3.8 g/dL (3.5-5.2); Alkaline Phosphatase 90 U/L (40-130); Anion Gap 12.5 (5-19); Aspartate Amino Transferase 14 U/L (0-40); Blood Urea Nitrogen 12 mg/dL (8-23); Calcium 8.9 mg/dL (8.5-10.5); Carbon Dioxide 26 mmol/L (22-29); Chloride 103 mmol/L (98-107); Creatinine Clr Calc Pharmacy 78.1921; Glomerular Filtration Rate 56.3 mL/min (90-130); Glucose 94 mg/dL (65-115); Lipase 53 U/L (13-60); Osmolality Calculated 284 mOsm/kg (285-295); Potassium 4.5 mmol/L (3.5-5.1); Sodium 137 mmol/L (136-145); Total Bilirubin 0.3 mg/dL (0.15-1.2); Total Protein 6.8 g/dL (6.6-8.7)
[2024-08-26 09:34] LABS: Bilirubin Urine Negative (Negative); Blood Urine Negative (Negative); Glucose Urine UA Negative (Normal); Ketones Urine Trace (Negative); Leukocyte Esterase Urine Trace (Negative); Nitrate Urine Negative (Negative); Protein Urine 1+ (Negative); Urine Appearance Turbid (CLEAR); Urine Color Yellow (Yellow); pH Urine 5.5 (5-7)
[2024-08-26 09:39] LABS: Add Urine Microscopic? YES; Bacteria Urine None Seen /hpf; Hyaline Casts Urine 6.61 /lpf; RBC Urine 0-2 /hpf (0-2); WBC Urine 0-5 /hpf (0-5)
[2024-08-26 11:03] VITALS: BP 149/72; PULSE 72; O2SAT 99
[2024-08-26 11:07] VITALS: BP 149/72; PULSE 69; O2SAT 98
== END 2024-08-26 11:08 | disposition home or self-care (01) ==
PROVIDERS: Emergency Provider Family Medicine; PCP Family Medicine
DX: R10.9 Unspecified abdominal pain (principal); F17.210 Nicotine dependence, cigarettes, uncomplicated
CPT/HCPCS: 36415; 71045; 74176; 80053; 81001; 83690; 85025; 93005; 99285

== ENCOUNTER 2024-11-18 06:46 | Outpatient (CLI) | payer MEDICAID, SELFPAY ==
--- NOTE | 2024-11-18 06:59 | MR_ITS ---
WS: [id number] MRI RIGHT SHOULDER HISTORY: right shoulder pain COMPARISON: Prior MRI 07/19/2022 and radiograph 06/14/2024 TECHNIQUE: Multiplanar sequences of the shoulder joint are submitted. Advanced AC joint arthritis. Large subchondral cystic changes noted in the distal clavicle and the acromion. AC joint is narrowed with hypertrophic soft tissue and bone. Moderate subacromial impingement. There is additional impingement upon the myotendinous portion of the supraspinatus from hypertrophic changes of the AC joint. There does appear to be an os acromion. There is fluid along the synchondrosis with cystic changes on both sides of the synchondrosis. No identifiable biceps tendon is noted at the bicipital groove. There is mixed heterogeneity which could potentially represent some fragments of the tendon. Humeral head is markedly high riding abutting the undersurface of the acromion. Complete tear of the supraspinatus tendon with retraction to the medial humeral head. Severe atrophy of the supraspinatus muscle. Similar to the prior study. Moderate atrophy of the subscapularis muscle. Subscapularis tendon is not identified extending to the humeral head. Suspect if not completely torn there is a high-grade tear. Infraspinatus muscle is well preserved. No tear identified. Teres minor appears intact. Subchondral cystic changes in the posterior lateral humeral head. There is a small amount of fluid in the axillary pouch. Degenerative changes throughout the labrum but no tear. MR/MR shoulder RT wo con* [id number] IMPRESSION: 1. Advanced AC joint arthritis. Large subchondral cysts in the clavicle and ac romion. 2. Os acromion with cyst on both sides of the synchondrosis. 3. Complete tear with retraction of the supraspinatus tendon and severe muscle atrophy. 4. Moderate atrophy of the subscapularis muscle. Very difficult visualization of the subscapularis tendon. There may be a very subtle tiny component of the s ubscapularis tendon remaining but there is at least a high-grade tear. 5. High riding humeral head. 6. Degenerative changes throughout the labrum. 7. Biceps tendon is not identified in the bicipital groove. Suspect biceps ten don is torn and retracted.
== END 2024-11-18 06:47 | disposition home or self-care (01) ==
LOC: RAD 06:49
PROVIDERS: PCP Family Medicine; Visit Provider Specialist
DX: M19.011 Primary osteoarthritis, right shoulder (principal); R93.6 Abnormal findings on diagnostic imaging of limbs; M75.121 Complete rotator cuff tear or rupture of right shoulder, not specified as traumatic; M62.511 Muscle wasting and atrophy, not elsewhere classified, right shoulder
CPT/HCPCS: 73221

== ENCOUNTER → 2024-12-13 15:54 | Outpatient (BNVA) | payer MEDICAID, SELFPAY | PROVIDERS: PCP Family Medicine; Visit Provider Specialist | DX: M19.011 Primary osteoarthritis, right shoulder (principal) | CPT/HCPCS: 73030 ==

== ENCOUNTER 2025-01-20 14:46 | Outpatient (CLI) | payer MEDICAID, SELFPAY ==
[2025-01-20 15:19] LABS: Basophils # 0.1 10^3/uL (0.0-0.1); Basophils % 0.7 %; Eosinophils # 1.6 10^3/uL (0.0-0.8); Eosinophils % 9.6 %; Hematocrit 46.7 % (37-53); Lymphocytes # 3.5 10^3/uL (0.8-4.8); Lymphocytes % 21.6 %; Mean Corpuscular HGB Conc 33.2 g/dL (30-55); Mean Corpuscular Hemoglobin 30.1 pg (27-33); Mean Corpuscular Volume 90.7 fl (82-101); Mean Platelet Volume 10.4 fL (7.4-10.4); Monocytes # 1.1 10^3/uL (0.2-0.9); Monocytes % 6.9 %; Neutrophils % 60.8 %; Nucleated Red Blood Cells % 0 %; Platelet Count 353 10^3/cmm (157-399); Red Blood Count 5.15 10^6/uL (3.85-5.65); Red Cell Distribution Width 13.2 % (12.1-15.1); White Blood Count 16.13 10^3/uL (3.29-11.43)
[2025-01-20 15:35] LABS: Alanine Aminotransferase 30 U/L (0-41); Albumin Level 4.1 g/dL (3.5-5.2); Alkaline Phosphatase 90 U/L (40-130); Aspartate Amino Transferase 17 U/L (0-40); Blood Urea Nitrogen 21 mg/dL (8-23); Calcium 9.4 mg/dL (8.5-10.5); Carbon Dioxide 23 mmol/L (22-29); Chloride 106 mmol/L (98-107); Glomerular Filtration Rate 68.3 mL/min (90-130); Glucose 97 mg/dL (65-115); Osmolality Calculated 295 mOsm/kg (285-295); Sodium 141 mmol/L (136-145); Total Bilirubin 0.2 mg/dL (0.15-1.2); Total Protein 7.1 g/dL (6.6-8.7)
[2025-01-20 15:40] LABS: Bilirubin Urine Negative (Negative); Blood Urine Negative (Negative); Glucose Urine UA Negative (Normal); Ketones Urine Trace (Negative); Leukocyte Esterase Urine Negative (Negative); Nitrate Urine Negative (Negative); Protein Urine Negative (Negative); Specific Gravity, Urine 1.022 (1.005-1.030); Urine Appearance Clear (CLEAR); Urine Color Yellow (Yellow); Urobilinogen Urine 0.2 mg/dL (Negative); pH Urine 5.5 (5-7)
[2025-01-20 15:45] LABS: Add Urine Microscopic? YES; Bacteria Urine None Seen /hpf; Hyaline Casts Urine 0-4 /lpf; RBC Urine 0-2 /hpf (0-2); Squamous Epithelial Cell Urine 0-5 /hpf (0-5); WBC Urine 0-5 /hpf (0-5)
[2025-01-20 18:49] LABS: Anion Gap 16.5 (5-19); Potassium 4.5 mmol/L (3.5-5.1)
== END 2025-01-20 14:47 | disposition home or self-care (01) ==
LOC: LAB 14:56
PROVIDERS: PCP Family Medicine; Visit Provider Specialist
DX: Z01.818 Encounter for other preprocedural examination (principal)
CPT/HCPCS: 36415; 80053; 81001; 85025

== ENCOUNTER → 2025-01-31 11:36 | Outpatient (BNVA) | payer MEDICAID, SELFPAY | PROVIDERS: PCP Family Medicine; Referring Provider Specialist; Visit Provider Family Medicine | DX: Z01.818 Encounter for other preprocedural examination (principal) | CPT/HCPCS: 85007; 85027 ==

== ENCOUNTER → 2025-02-01 10:54 | Day surgery (SDC) | payer MEDICAID, SELFPAY ==
[2025-02-01 11:09] VITALS: BP 162/92; PULSE 69; RESP 18; TEMP 36.3; O2SAT 96
[2025-02-01 11:12] VITALS: BMI 34.5
[2025-02-01] MEDS: sodium chloride 0.9% 1,000 ML 30 ML IV (11:31)
[2025-02-01] MEDS: gabapentin 300 mg Capsule PO (11:32)
[2025-02-01] MEDS: acetaminophen 1,000 MG/100 ML PIGGYBACK 400 MG IV (11:33)
[2025-02-01 11:40] LABS: Glucose Point of Care 100 mg/dL (70-110)
--- NOTE | 2025-02-01 12:15 | SUR.PREOP ---
Right interscalene block performed by Dr Zamora at bedside using 20ml 0.5% ropivicaine and 4ml decadron. Patient tolerated well.
--- NOTE | 2025-02-01 12:22 | ANES.PREANE2 ---
Pre-Anesthetic Assessment Height/Weight: Height 1.85 m Weight 118.841 kg Temp Pulse Resp BP Pulse Ox O2 Del Method 97.3 F L 69 18 162/92 96 Room Air 02/01/25 11:09 02/01/25 11:09 02/01/25 11:09 02/01/25 11:09 02/01/25 11:09 02/01/25 11:13 Operation Date: 02/01/25 12:55 Proposed Procedures p RIGHT Total Reverse Shoulder Arthroplasty(Right) - Maria Teresa Thayer MD Familial anesthetic complications: None Was Beta Demarco taken within 24 hours: N/A Was Clonidine taken within 24 hours: N/A Last intake: Intake Last Liquid Date 01/31/25 Last Liquid Time 23:00 Last Solid Date 01/31/25 Last Solid Time 23:00 Social Tobacco and No alcohol Exam alert, oriented x 3, clear to auscultation bilaterally and regular rate & rhythm Airway Mallampati: Class III Dentition: full CV/HEM Hypertension EKG 08/26/24 SINUS RHYTHM Compared to ECG 05/28/2023 12:23:51 No significant changes ECHO 06/12/23 LV systolic function is normal with EF of 55-60% Mild mitral regurgitation Mild tricuspid regurgitation No comparison studies are available. CARDIAC EVENT MONITOR 05/28/23 1. Monitoring period was from 11/29/2021 to 12/12/2021. 2. Baseline heart rhythm was normal sinus rhythm with heart rate of 70 bpm. 3. Average heart rate was 70 bpm. Maximum heart rate was 145 bpm and patient was in sinus tachycardia at that time. This was recorded on 06/08/2023 at 12:44 PM. Minimum heart rate was 47 bpm. Patient had sinus bradycardia. This was recorded at 6:35 AM on 06/06/2023. Less than 1% ventricular ectopic beats. 6% supraventricular ectopic beats. 4. No atrial fibrillation. Patient had 1 episode of 7 seconds long SVT. 5. No pauses seen 6. Patient reported symptoms of dizziness correlated with PACs. Neuropsych Transient Ischemic Attack Anesthetic Plan ASA status: 3 Anesthesia: General and Regional (specify below) Risk of > 500 ml blood loss (7ml/kg in children): No Medications/Allergies Home Medications ?Medication ?Instructions ?Recorded ?Confirmed ?Last Taken ?Type losartan 25 mg tablet 25 mg PO DAILY 01/01/31/25 01/31/25 History diclofenac sodium 75 mg 75 mg PO Q12H PRN pain #20 tabs 09/10/21 01/31/25 01/31/25 Rx tablet,delayed release atorvastatin 20 mg tablet 20 mg PO DAILY 05/28/23 01/31/25 01/31/25 History epinephrine 0.3 mg/0.3 mL 0.3 mg IM Q4H PRN Allergic Reaction 05/28/23 01/31/25 Unknown History injection, auto-injector albuterol sulfate 90 mcg/actuation 1 - 2 puff inhalation Q4H PRN 08/26/24 01/31/25 01/30/25 History aerosol inhaler (Ventolin HFA) Wheezing metoprolol tartrate 25 mg tablet 12.5 mg (1/2 x 25 mg) PO BID #180 10/07/24 02/01/25 02/01/25 Rx tabs Allergies Allergy/AdvReac Type Severity Reaction Status Date / Time aspirin Allergy Intermediate hives Verified 02/01/25 11:07 Current Medications Generic Name Dose Route Start Last Admin Trade Name Freq PRN Reason Stop Dose Admin Sodium Chloride 1,000 mls @ 30 mls/hr 02/01/25 11:00 02/01/25 11:31 Sodium Chloride 0.9% IV 02/02/25 10:59 30 mls/hr .Q24H CARROL Administration PFSH Anesthesia Social History Smoking and tobacco/nicotine status: current every day tobacco/nicotine user cigarettes Alcohol intake: never Substance/Drug Use: never Data Anesthesia Cardiac Studies: Echocardiogram 06/12/23 Cardiac Event Monitor 05/28/23 Holter Monitor 04/14/23 Anesthesia Procedures Nerve Block Nerve Block 1: Main Anesthesia: general anesthesia Time Out Performed: Yes Consent: requested by attending/covering physician, from patient, from other, risks and benefits reviewed and patient agrees to proceed Nerve block location: interscalene (R) Anesthesia monitors applied: pulse oximetry, EKG, BP cuff and oxygen Nerve block position: semi sitting Anesthetic Used: ropivicaine 0.5% (20 ml) and with decadron (4 mg) Ultrasound used to: recognize landmarks, visualize and ID brachial plexus, in supraclavicular region and visualize and ID interscalene groove Nerve Stimulator Used?: No Interscalene/Femoral BLK: 2 stimuplex 22 g needle used for position and inplane approach, visualize local anesthetic spread and no vascular puncture identified Injection: neg aspiration of heme Patient Tolerated Procedure: well Complications: none
[2025-02-01 13:45] VITALS: BP 118/64; PULSE 59; RESP 15; O2SAT 96
--- NOTE | 2025-02-01 14:16 | PM.MISC ---
Miscellaneous Note Purpose of Documentation: Acute pain Note: Approximately 10 minutes ago patient began experiencing exquisite sharp RUQ tenderness that radiates to back between shoulder blades. Pain is constant and exacerbated by palpation of the area and with movement. Denies history of similar pain, does not believe it to be similar to gas pains he's ever experienced in the past. Given acute change in status decision was made to transport patient to ER for further evaulation and to reschedule surgery for a different date after appropriate work up.
--- NOTE | 2025-02-01 14:45 | SUR.PHASEI ---
1300-Upon checking patient he states his block to right shoulder is working but he is having pain to his abdomen. Stated when he takes a breath in it hurts really bad and pain goes around his side to his back. Dr Zamora was notified. While waiting for Dr Zamora, Dr Thayer came to access patient prior to surgery. Dr Thayer called ER and taked to on staff, ER Dr told her to bring patient down and they would do all labs etc. Patient was [facility] by [facility] to ER by RN and Dr Zamora. Handoff was given at bedside to RN in ER12.
--- NOTE | 2025-02-01 17:05 | PM.MISC ---
Miscellaneous Note Purpose of Documentation: Cancellation of surgery Note: Patient was seen in the preop holding area and he was complaining of abdominal discomfort with every breath. He was tender to palpation in the epigastric area and lower right quadrant. He denied prior cholecystectomy or appendectomy. The pain was progressive and in fact, was present without external pressure on the abdomen. As this was new onset for the patient, plans were made to cancel his surgery and reschedule at an alternate time. Patient was sent to the emergency department.
== END ==
LOC: OR 10:55
PROVIDERS: PCP Family Medicine; Visit Provider Specialist
PROC: (CPT 23472; principal; 2025-02-01 12:55)
DX: M19.011 Primary osteoarthritis, right shoulder (principal); R10.13 Epigastric pain; R10.31 Right lower quadrant pain; Z53.8 Procedure and treatment not carried out for other reasons; I10 Essential (primary) hypertension; Z79.899 Other long term (current) drug therapy; Z88.8 Allergy status to other drugs, medicaments and biological substances; F17.210 Nicotine dependence, cigarettes, uncomplicated
CPT/HCPCS: 36416; 82962; J0131; J1100; J2371; J2704; J2795; J3010; J3490; J7030; J9999

== ENCOUNTER 2025-02-01 14:10 | Emergency (ER) | payer MEDICAID, SELFPAY ==
[2025-02-01 14:40] VITALS: BP 148/87; PULSE 63; RESP 18; TEMP 36.7; O2SAT 97; BMI 34.2
--- NOTE | 2025-02-01 14:57 | ED_ITS ---
HPI - Abdominal Pain 2 General: Chief Complaint: Abdominal Pain Stated Complaint: Abd Pain Time Seen by Provider: 02/01/25 14:57 History of Present Illness: 59-year-old male present emergency room with abdominal discomfort he was scheduled to have a right shoulder arthroplasty complained of abdominal pain prior to surgery and surgery was canceled he was redirected to the emergency room. He denies any vomiting or diarrhea but has been nauseous denies any dysuria urgency or frequency hematochezia or melena. He has been n.p.o. which he thinks may have contributed to it. He usually takes famotidine for reflux. Associated Symptoms: Reports nausea; Denies chills, constipation, diarrhea, dysuria, fever(s) and vomiting Related Data Home Medications ?Medication ?Instructions ?Recorded ?Confirmed atorvastatin 20 mg tablet 20 mg PO DAILY 05/28/2301/20 epinephrine 0.3 mg/0.3 mL 0.3 mg IM Q4H PRN Allergic R eaction 05/28/23 02/01/25 injection, auto-injector albuterol sulfate 90 mcg/actuation 1 - 2 puff inhalati on Q4H PRN 08/26/24 02/01/25 aerosol inhaler (Ventolin HFA) Wheezing losartan 100 mg tablet 100 mg PO DAILY 02/01/25 Previous Rx's ?Medication ?Instructions ?Recorded diclofenac sodium 75 mg 75 mg PO Q12H PRN pain #20 t abs 09/10/21 tablet,delayed release metoprolol tartrate 25 mg tablet 12.5 mg (1/2 x 25 mg) PO BID #180 10/07/24 tabs pantoprazole 40 mg tablet,delayed 40 mg PO DAILY #30 t abs 02/01/25 release Allergies Allergy/AdvReac Type Severity Reaction Status Date / Time aspirin Allergy Intermediate hives Verified 02/01/25 11:07 Review of Systems 2 Const: Denies: fever(s) or chills Card: Denies: chest pain Resp: Denies: dyspnea GI: Reports: abdominal pain and nausea; Denies: vomiting, diarrhea or constipation : Denies: dysuria, urinary frequency or urinary urgency Musc: Denies: neck pain or back pain Skin/Breast: Denies: rash PFSH ED 2 PFSH: Medical History Lumbar stenosis with neurogenic claudication Hypertension Social History Smoking and tobacco/nicotine status: current every day tobacco/nicotine user cigarettes Alcohol intake: never Substance/Drug Use: never Physical Exam 2 Const: GENERAL APPEARANCE: cooperative ORIENTATION/CONSCIOUSNESS: Yes awake HENMT: COMMON NORMALS: normocephalic, atraumatic and hearing grossly normal bilaterally HEAD & SCALP: normocephalic and atraumatic Resp: COMMON NORMALS: normal respiratory effort, No retractions, No use of accessory muscles and clear to auscultation bilaterally AUSCULTATION: clear to auscultation bilaterally Cardio: COMMON NORMALS: regular rate, regular rhythm and No murmurs present (Cardio) RATE: regular rate RHYTHM: regular rhythm GI: COMMON NORMALS: Soft to palpation and No hepatosplenomegaly present A USCULTATION: Yes normoactive bowel sounds PALPATION: Yes Soft to palpation, No Tenderness to palpation present (GI), No Guarding due to palpation present (GI) and Yes No hepatosplenomegaly present Extremity: COMMON NORMALS: normal to inspection, capillary refill normal, no clubbing, cyanosis or edema, no calf tenderness and no pedal edema Skin: COMMON NORMALS: no rashes or lesions noted GENERAL SKIN EXAM: no rashes or lesions noted Course 2 Vital Signs: Vital signs: Vital Signs Temperature 98.1 F 02/01/25 14:40 Pulse Rate 62 02/01/25 15:14 Respiratory Rate 18 02/01/25 14:40 Blood Pressure 138/84 02/01/25 15:14 Pulse Oximetry 96 02/01/25 15:14 Oxygen Delivery Me thod Room Air 02/01/25 14:40 MDM - Abdominal Pain Medical Decision Making Laboratory test unremarkable CT did not show any acute pathology patient is feeling somewhat improved he is actually asking to eat. Will discharge him home stop famotidine start pantoprazole 40 daily follow-up with primary care he can follow-up with Ortho to reschedule surgery at his discretion Medical Records I reviewed the patient's medical records. Lab Data I reviewed the patient's lab results. 02/01/25 15:00 02/01/25 15:00 Labs/Radiology: Radiology Impressions Abdomen/Pelvis CT 02/01/25 15:15 IMPRESSION: 1. No acute abdominal or pelvic abnormalities. 2. Negative gallbladder by CT. 3. No GI tract obstruction. 4. Normal appendix. 5. No renal obstruction. Laboratory Results WBC 11.30 10^3/uL (3.29-11.43) 02/01/25 15:00 RBC 5.12 10^6/uL (3.85-5.65) 02/01/25 15:00 Hgb 15.20 g/dL (11.27-16.99) 02/01/25 15:00 Hct 45.7 % (37-53) 02/01/25 15:00 MCV 89.3 fl (82-101) 02/01/25 15:00 MCH 29.7 pg (27-33) 02/01/25 15:00 MCHC 33.3 g/dL (30-55) 02/01/25 15:00 RDW 13.0 % (12.1-15.1) 02/01/25 15:00 Plt Count 314 10^3/cmm (157-399) 02/01/25 15:00 MPV 10.1 fL (7.4-10.4) 02/01/25 15:00 Neut % (Auto) 72.5 % 02/01/25 15:00 Lymph % (Auto) 16.7 % 02/01/25 15:00 [place] % (Auto) 4.3 % 02/01/25 15:00 Eos % (Auto) 5.4 % 02/01/25 15:00 Baso % (Auto) 0.7 % 02/01/25 15:00 Neut # (Auto) 8.19 10^3/uL (1.8-7.7) H 02/01/25 15:00 Lymph # (Auto) 1.9 10^3/uL (0.8-4.8) 02/01/25 15:00 [place] # (Auto) 0.5 10^3/uL (0.2-0.9) 02/01/25 15:00 Eos # (Auto) 0.6 10^3/uL (0.0-0.8) 02/01/25 15:00 Baso # (Auto) 0.1 10^3/uL (0.0-0.1) 02/01/25 15:00 Nucleated RBC % (auto) 0 % 02/01/25 15:00 Nucleated RBCs # 0.0 /100WBC 02/01/25 15:00 Sodium 136 mmol/L (136-145) 02/01/25 15:00 Potassium 5.0 mmol/L (3.5-5.1) 02/01/25 15:00 Chloride 104 mmol/L (98-107) 02/01/25 15:00 Carbon Dioxide 20 mmol/L (22-29) L 02/01/25 15:00 Anion Gap 17.0 (5-19) 02/01/25 15:00 BUN 16 mg/dL (8-23) 02/01/25 15:00 Creatinine 1.0 mg/dL (0.7-1.2) 02/01/25 15:00 GFR Calculation 76.2 mL/min (90-130) L 02/01/25 15:00 Glucose 97 mg/dL (65-115) 02/01/25 15:00 Calculated Osmolality 283 mOsm/kg (285-295) L 02/01/25 15:00 Calcium 8.7 mg/dL (8.5-10.5) 02/01/25 15:00 Total Bilirubin 0.3 mg/dL (0.15-1.2) 02/01/25 15:00 AST 25 U/L (0-40) 02/01/25 15:00 ALT 29 U/L (0-41) 02/01/25 15:00 Alkaline Phosphatase 80 U/L (40-130) 02/01/25 15:00 Total Protein 6.9 g/dL (6.6-8.7) 02/01/25 15:00 Albumin 3.9 g/dL (3.5-5.2) 02/01/25 15:00 Globulin 3.0 g/dL (1.3-4.6) 02/01/25 15:00 Lipase 83 U/L (13-60) H 02/01/25 15:00 Urine Color Yellow (Yellow) 02/01/25 15:04 Urine Appearance Clear (CLEAR) 02/01/25 15:04 Urine pH 5.5 (5-7) 02/01/25 15:04 Ur Specific [place] 1.018 (1.005-1.030) 02/01/25 15:04 Urine Protein Negative (Negative) 02/01/25 15:04 Urine Glucose (UA) Negative (Normal) 02/01/25 15:04 Urine Ketones Negative (Negative) 02/01/25 15:04 Urine Blood Negative (Negative) 02/01/25 15:04 Urine Nitrate Negative (Negative) 02/01/25 15:04 Urine Bilirubin Negative (Negative) 02/01/25 15:04 Urine Urobilinogen 0.2 mg/dL (Negative) 02/01/25 15:04 Ur Leukocyte Esterase Negative (Negative) 02/01/25 15:04 Urine RBC 0-2 /hpf (0-2) 02/01/25 15:04 Urine WBC 0-5 /hpf (0-5) 02/01/25 15:04 Ur Squamous Epith Cells 0-5 /hpf (0-5) 02/01/25 15:04 Amorphous Sediment Not Reportable 02/01/25 15:04 Urine Bacteria None seen /hpf (NONE) 02/01/25 15:04 Hyaline Casts 0.40 /lpf 02/01/25 15:04 All radiology interpretation(s) finalized by discharge Discharge Plan Discharge Patient Disposition: Home Clinical Impression: Abdominal pain Condition: Stable Prescriptions: New pantoprazole 40 mg tablet,delayed release (DR/EC) 40 mg PO DAILY Qty: 30 0RF No Action atorvastatin 20 mg tablet 20 mg PO DAILY epinephrine 0.3 mg/0.3 mL auto-injector 0.3 mg IM Q4H PRN (Reason: Allergic Reaction) metoprolol tartrate 25 mg tablet 12.5 mg PO BID Qty: 180 0RF diclofenac sodium 75 mg tablet,delayed release (DR/EC) 75 mg PO Q12H PRN (Reason: pain) Qty: 20 0RF albuterol sulfate [Ventolin HFA] 90 mcg/actuation HFA aerosol inhaler 1 - 2 puff INHALATION Q4H PRN (Reason: Wheezing) losartan 100 mg tablet 100 mg PO DAILY Discharge Orders: Discharge ED (Routine); Ordered 02/01/25 Ordered By: Hung Metcalf Referrals: Jonatan Tenorio MD [Primary Care Provider, [facility]] Discharge Diet: As Directed Discharge Activity: Increase activity as tolerated Patient Instructions: Diet for Stomach Ulcers and Gastritis (ED), GERD (Gastroesophageal Reflux Disease) (ED), Abdominal Pain (ED), Opioid Safety, Pain Management Activity Restrictions/Additional Instructions: Thank you for choosing [facility] for your healthcare needs today. It is very important that you follow up as instructed or that you return to the Emergency Department should you have concerns or if your condition changes or worsens in any way. You were seen in the emergency room with complaint of abdominal pain. CT of your abdomen was negative. Your laboratory tests were unremarkable. Recommend you hold the famotidine and instead take pantoprazole 40 mg once daily follow-up with your primary care doctor return to the emergency room if you have any worsening symptoms Print Language: Andorran Coding Level of Care Code ED Track Moving Machine Operator for Jonathan Garvin
[2025-02-01 15:10] LABS: Basophils # 0.1 10^3/uL (0.0-0.1); Basophils % 0.7 %; Eosinophils # 0.6 10^3/uL (0.0-0.8); Eosinophils % 5.4 %; Hematocrit 45.7 % (37-53); Lymphocytes # 1.9 10^3/uL (0.8-4.8); Lymphocytes % 16.7 %; Mean Corpuscular HGB Conc 33.3 g/dL (30-55); Mean Corpuscular Hemoglobin 29.7 pg (27-33); Mean Corpuscular Volume 89.3 fl (82-101); Mean Platelet Volume 10.1 fL (7.4-10.4); Monocytes # 0.5 10^3/uL (0.2-0.9); Monocytes % 4.3 %; Neutrophils # 8.19 10^3/uL (1.8-7.7); Neutrophils % 72.5 %; Nucleated Red Blood Cells % 0 %; Platelet Count 314 10^3/cmm (157-399); Red Blood Count 5.12 10^6/uL (3.85-5.65)
[2025-02-01 15:14] VITALS: BP 138/84; PULSE 62; O2SAT 96
[2025-02-01 15:15] LABS: Bilirubin Urine Negative (Negative); Blood Urine Negative (Negative); Glucose Urine UA Negative (Normal); Ketones Urine Negative (Negative); Leukocyte Esterase Urine Negative (Negative); Nitrate Urine Negative (Negative); Protein Urine Negative (Negative); Specific Gravity, Urine 1.018 (1.005-1.030); Urine Appearance Clear (CLEAR); Urine Color Yellow (Yellow); Urobilinogen Urine 0.2 mg/dL (Negative); pH Urine 5.5 (5-7)
--- NOTE | 2025-02-01 15:15 | CT_ITS ---
WS: [id number] CT ABDOMEN AND PELVIS WITH CONTRAST HISTORY: abd pain TECHNIQUE: Imaging performed of the abdomen and pelvis with IV contrast. Single phase imaging of the abdomen. Coronal and sagittal reformats are submitted. All CT scans at [facility] use at least one of these dose optimization techniques: automated exposure control; mA and/or kV adjustment per patient size (includes targeted exams where dose is matched to clinical indication); or iterative reconstruction. IV CONTRAST: Omnipaque 350; 100 mL IV. Oral contrast: No DLP: 1313.62 mGy.cm COMPARISON: 08/26/2024 Lower thorax: Lung bases are clear. Heart is normal size. No hiatal hernia. Liver/biliary system: Normal size with no intrahepatic dilatation. Gallbladder: Normal. No gallstones or wall thickening. No pericholecystic fluid. Pancreas: Normal size pancreas and pancreatic duct. No adjacent inflammation. Spleen: Normal size spleen. No mass or infarct. Adrenal glands: Normal. Right kidney: Cortical cyst 1.3 cm. No obstruction. Additional too small to characterize cortical hypodensities. Left kidney: No obstruction. Too small to characterize cortical hypodensities. Aorta: Mild atherosclerosis with no aneurysm. Lymphadenopathy: None. Free fluid: None. GI tract: Normal stomach. No small bowel obstruction. Normal appendix. Mild scattered diverticular disease without acute diverticulitis. Abdominal wall: Unremarkable abdominal wall. No hernia. Pelvis: No free fluid or adenopathy within the pelvis. Bones: Unremarkable. CT/CT abdomen pelvis w con* [id number] IMPRESSION: 1. No acute abdominal or pelvic abnormalities. 2. Negative gallbladder by CT. 3. No GI tract obstruction. 4. Normal appendix. 5. No renal obstruction.
[2025-02-01 15:21] LABS: Add Urine Microscopic? YES; Bacteria Urine None Seen /hpf; RBC Urine 0-2 /hpf (0-2); Squamous Epithelial Cell Urine 0-5 /hpf (0-5); WBC Urine 0-5 /hpf (0-5)
[2025-02-01] MEDS: iohexol 350 mg/mL 500 mL Btl (per mL) IV (15:24)
[2025-02-01 15:42] LABS: Alanine Aminotransferase 29 U/L (0-41); Albumin Level 3.9 g/dL (3.5-5.2); Alkaline Phosphatase 80 U/L (40-130); Aspartate Amino Transferase 25 U/L (0-40); Blood Urea Nitrogen 16 mg/dL (8-23); Calcium 8.7 mg/dL (8.5-10.5); Carbon Dioxide 20 mmol/L (22-29); Chloride 104 mmol/L (98-107); Creatinine Clr Calc Pharmacy 105.6818; Glomerular Filtration Rate 76.2 mL/min (90-130); Glucose 97 mg/dL (65-115); Lipase 83 U/L (13-60); Osmolality Calculated 283 mOsm/kg (285-295); Sodium 136 mmol/L (136-145); Total Bilirubin 0.3 mg/dL (0.15-1.2); Total Protein 6.9 g/dL (6.6-8.7)
== END 2025-02-01 16:40 | disposition home or self-care (01) ==
PROVIDERS: Emergency Medicine; Emergency Provider Family Medicine; PCP Family Medicine
DX: R10.9 Unspecified abdominal pain (principal); F17.210 Nicotine dependence, cigarettes, uncomplicated; I10 Essential (primary) hypertension
CPT/HCPCS: 36415; 74177; 80053; 81001; 83690; 85025; 99285

== ENCOUNTER → 2025-05-04 08:42 | Outpatient (BNVA) | payer MEDICAID, SELFPAY | PROVIDERS: PCP Family Medicine; Visit Provider Specialist | DX: M19.011 Primary osteoarthritis, right shoulder (principal) | CPT/HCPCS: 73030 ==

== ENCOUNTER 2025-05-26 13:20 | Outpatient (CLI) | payer MEDICAID, SELFPAY ==
[2025-05-26 13:46] LABS: Hematocrit 42.7 % (37-53); Hemoglobin 14.10 g/dL (11.27-16.99); Mean Corpuscular HGB Conc 33.0 g/dL (30-55); Mean Corpuscular Hemoglobin 29.8 pg (27-33); Mean Corpuscular Volume 90.3 fl (82-101); Nucleated Red Blood Cells % 0 %; Platelet Count 336 10^3/cmm (157-399); Red Blood Count 4.73 10^6/uL (3.85-5.65); White Blood Count 12.07 10^3/uL (3.29-11.43)
[2025-05-26 13:50] LABS: Glucose Urine UA Negative (Normal); Nitrate Urine Negative (Negative); Specific Gravity, Urine 1.030 (1.005-1.030)
[2025-05-26 13:52] LABS: Add Urine Microscopic? YES
[2025-05-26 14:08] LABS: Alanine Aminotransferase 26 U/L (0-41); Albumin Level 4.0 g/dL (3.5-5.2); Alkaline Phosphatase 89 U/L (40-130); Aspartate Amino Transferase 20 U/L (0-40); Blood Urea Nitrogen 18 mg/dL (8-23); Calcium 8.9 mg/dL (8.5-10.5); Carbon Dioxide 23 mmol/L (22-29); Chloride 107 mmol/L (98-107); Globulin 3.3 g/dL (1.3-4.6); Glucose 90 mg/dL (65-115); Osmolality Calculated 295 mOsm/kg (285-295); Sodium 142 mmol/L (136-145); Total Protein 7.3 g/dL (6.6-8.7)
[2025-05-26 14:12] LABS: Anion Gap 16.3 (5-19); Potassium 4.3 mmol/L (3.5-5.1)
== END 2025-05-26 13:21 | disposition home or self-care (01) ==
PROVIDERS: PCP Family Medicine; Visit Provider Specialist
DX: Z01.818 Encounter for other preprocedural examination (principal)
CPT/HCPCS: 36415; 80053; 81001; 85025

== ENCOUNTER 2025-06-16 15:03 | Observation (INO) | payer MEDICAID, SELFPAY ==
[2025-06-16] VITALS (10 sets, daily range): BP systolic 115–155; BP diastolic 58–91; PULSE 73–91; RESP 16–18; TEMP 36.3–36.7; O2SAT 90–100; BMI 34.5
--- NOTE | 2025-06-16 09:25 | ANES.PREANE2 ---
Pre-Anesthetic Assessment Height/Weight: Height 1.85 m Weight 118.841 kg O2 Del Method Room Air 06/16/25 09:05 Operation Date: 06/16/25 10:50 Proposed Procedures p RIGHT Total Reverse Shoulder Arthroplasty(Right) - Maria Teresa Thayer MD Familial anesthetic complications: Nerve block resulted in dyspnea with first attempt at surgery and patient said the pain he felt in RUQ also went away after the arm sensation returned, so will avoid nerve block for this surgery Was Beta Demarco taken within 24 hours: N/A Was Clonidine taken within 24 hours: N/A Last intake: Intake Last Liquid Date 06/15/25 Last Liquid Time 00:00 Last Solid Date 06/15/25 Last Solid Time 20:00 Social No alcohol and No tobacco Exam alert, oriented x 3, clear to auscultation bilaterally and regular rate & rhythm CV/HEM Hypertension EKG 08/26/24 SINUS RHYTHM Compared to ECG 05/28/2023 12:23:51 No significant changes ECHO 06/12/23 LV systolic function is normal with EF of 55-60% Mild mitral regurgitation Mild tricuspid regurgitation No comparison studies are available. CARDIAC EVENT MONITOR 05/28/23 1. Monitoring period was from 11/29/2021 to 12/12/2021. 2. Baseline heart rhythm was normal sinus rhythm with heart rate of 70 bpm. 3. Average heart rate was 70 bpm. Maximum heart rate was 145 bpm and patient was in sinus tachycardia at that time. This was recorded on 06/08/2023 at 12:44 PM. Minimum heart rate was 47 bpm. Patient had sinus bradycardia. This was recorded at 6:35 AM on 06/06/2023. Less than 1% ventricular ectopic beats. 6% supraventricular ectopic beats. 4. No atrial fibrillation. Patient had 1 episode of 7 seconds long SVT. 5. No pauses seen 6. Patient reported symptoms of dizziness correlated with PACs. Anesthetic Plan ASA status: 2 Anesthesia: General Risk of > 500 ml blood loss (7ml/kg in children): No Medications/Allergies Home Medications ?Medication ?Instructions ?Recorded ?Confirmed ?Last Taken ?Type diclofenac sodium 75 mg 75 mg PO Q12H PRN pain #20 tabs 09/10/21 06/15/25 01/31/25 Rx tablet,delayed release atorvastatin 20 mg tablet 20 mg PO DAILY 05/28/23 06/15/25 06/15/25 History epinephrine 0.3 mg/0.3 mL 0.3 mg IM Q4H PRN Allergic Reaction 05/28/23 06/15/25 Unknown History injection, auto-injector albuterol sulfate 90 mcg/actuation 1 - 2 puff inhalation Q4H PRN 08/26/24 06/15/25 01/30/25 History aerosol inhaler (Ventolin HFA) Wheezing losartan 100 mg tablet 100 mg PO DAILY 02/01/25 06/15/25 06/15/25 History metoprolol tartrate 25 mg tablet 12.5 mg (1/2 x 25 mg) PO BID #90 05/11/25 06/16/25 06/16/25 Rx tabs Allergies Allergy/AdvReac Type Severity Reaction Status Date / Time aspirin Allergy Intermediate hives Verified 06/15/25 15:12 [facility] Anesthesia Medical History Lumbar stenosis with neurogenic claudication Hypertension Social History Smoking and tobacco/nicotine status: current every day tobacco/nicotine user cigarettes Alcohol intake: never Substance/Drug Use: never Data Anesthesia Cardiac Studies: Echocardiogram 06/12/23 Cardiac Event Monitor 05/28/23 Holter Monitor 04/14/23
[2025-06-16] MEDS: acetaminophen 1,000 MG/100 ML PIGGYBACK 400 MG IV (09:36)
[2025-06-16] MEDS: ceFAZolin 2,000 mg SDV 2000 MG IVP ×2 (11:08→18:07)
[2025-06-16] MEDS: tranexamic acid 1,000 mg/10mL SDV 1000 MG IV (11:40)
[2025-06-16] MEDS: ceFAZolin 1,000 mg SDV 1000 MG IRRIGATION (12:29)
[2025-06-16] MEDS: BUPivacaine 0.5% INJ 10 mL 20 ML INJECTION (12:40)
[2025-06-16] MEDS: BUPivacaine liposome 13.3 mg/mL SDV 20 mL 266 MG INJECTION (12:40)
--- NOTE | 2025-06-16 15:23 | P.OP_ITS ---
Operative Report Date of procedure: June 16, 2025 Pre-op diagnosis: Right rotator cuff arthropathy, severe Post-op diagnosis: Right rotator cuff arthropathy, severe Post-op findings: Severe degenerative osteoarthritic change, near obliteration of the rotator cuff, complete deformity of the humeral head Procedure done: Reverse right shoulder arthroplasty Implants: The Tornier Perform Reverse shoulder system with a size 25 mm standard glenoid baseplate, a size 36 mm cannulated standard glenosphere, reversed, and a size 6B humeral stem with a flex reversed tray, centered, +0 mm and a reversed insert with +6 mm thickness Specimens removed/disposition: Bone, disposed of Pathology: None Surgeon: Maria Teresa Thayer MD Package Sealer: None Anesthesia: General (Intubated, ASA 2) Estimated blood loss (mL): 50 IV fluids (mL): 1,300 Urine output (mL): 250 Complications: None Findings: Severe degenerative osteoarthritis with large osteophytes, humeral head deformity, incompetent rotator cuff Condition: stable Disposition: PACU (Then to floor for postoperative rehabilitation and pain management) Brief History: This 59-year-old gentleman presented to the office complaining of severe right shoulder pain. MRI demonstrated absent biceps tendon high riding humeral head complete tear and retraction of the supraspinatus tendon with severe muscle atrophy and only a very tiny portion of the subscapularis tendon remaining. Patient had significant limitations in activities of daily living, and wished to proceed with reverse shoulder arthroplasty. This had been previously discussed. Patient was consented for reverse shoulder arthroplasty. Risks and complications were discussed with him. Consents were signed and questions were answered. He was given further opportunity to the morning of surgery to have further questions answered. Procedure: The patient was brought to the operating theater and placed in the beachchair positioner following administration of general anesthesia intubated, ASA 2.? When he was positioned and confirmation was made that we could place the shoulder in appropriate positions to accomplish the surgical procedure, the right upper extremity was prepped and draped in usual fashion utilizing DuraPrep.? We confirmed we could visualize appropriately with fluoroscopy as well prior to prepping.? Following the DuraPrep, the patient's arm was draped free but so that we could use the arm marin to secure positions of the arm and this allowed us full access to the shoulder.? Preoperatively, the patient's arm had been marked and I subsequently initialed this.? During our surgical pause, we confirmed the site and side of surgery and this avis was visualized.? Additionally, the clavicle as well as the acromioclavicular joint and the coracoid were marked to allow appropriate incision placement.? Preoperative antibiotic, Ancef 2 g.? Surgical pause was performed prior to incision. Incision then began between the acromioclavicular joint and coracoid and continued along the deltopectoral groove.? This was a standard deltopectoral incision.? Dissection continued through skin and soft tissues using a scalpel, and hemostasis was obtained using electrocautery.? The deltopectoral fascia was incised.? Soft tissues were then elevated from the subscapularis tendon.? Retractors were placed.? The coracoid was palpated as well as the musculocutaneous nerve and these were retracted as well as the deltoid on the opposite side.? The leash of vessels at the inferior aspect of the subscapularis was cauterized.? Tag sutures were placed 2 cm medial to the biceps tendon and further medial and an incision was made through the capsule and subscapularis tendon between the 2 lines of sutures.? Incision was continued transversely both superiorly through the rotator interval and inferiorly to allow access to the shoulder joint. The humeral head was manipulated and dislocated. Soft tissues were elevated off of the neck of the humerus following osteophyte removal.? In this way we were able to mobilize the humerus.? The canal finder/placed to the humeral head in appropriate position. This passed without difficulty. The proximal portion of the humerus was further opened with a chief merchandising officer. Once this was accomplished, canal finder was removed. Broaching began at a size 1 and progressed to a size 6. The broach was visualized in the proximal humerus via fluoroscopy. We were then able to move the humerus out of the way to visualize the glenoid. Soft tissues were resected from around glenoid.? Cautery was used to do this so that we could fully visualize for placement of the components.? Care was taken to protect the musculocutaneous and also the axillary nerves during this process. The glenoid was visualized.? The guidewire was placed into the glenoid.? This was a bicortical wire, and measured approximately 40 mm into the bone. Prior to removal of the guidewire, reaming was accomplished, and we reamed until we had removed the cartilaginous tissue and had good cortical bone. Following this the guide pin was removed and a depth gauge was utilized to assure that this was the appropriate length screw and that we were not outside of the bone.? Finding this to be so and having reamed to good bleeding bone, reaming was accomplished for the posterior portion of the glenoid baseplate. Baseplate was placed in position with the 40 mm central screw. The baseplate was attached with the superior, anterior, and posterior screws. These provided excellent fixation. We had good purchase with the screws, and therefore, the standard glenosphere for the Tornier perform reverse shoulder was placed in position. This was a 36 mm glenosphere. It was found to seat nicely. The screw was then placed through the glenosphere into the baseplate. Attention was redirected to the humerus. Humerus was brought into position and evaluated for looseness of the joint. The size 6B broach was seated into the humerus until it was stable. The broach was noted to fit nicely. There was enough room for the other components without overtightening. Trial reduction was then accomplished utilizing the Tornier flex reversed tray with a reversed insert, +6 mm thickness, angle B. With this, there was noted to be excellent stability. Shoulder was once again dislocated, trial components were removed from the humerus, and the size 6B Tornier standard humeral stem was impacted into position. Onto this was placed a combination of the Flex Reverse tray and the Flex Reversed insert with +6 mm thickness. Shoulder was reduced and placed through range of motion. The construct was felt to be acceptable. The shoulder was then copiously irrigated. Attention was directed to closure.? The shoulder was irrigated copiously with normal saline with Betadine and subsequently this was irrigated with normal saline.? Closure was then accomplished utilizing 0 Ethibond combined with 0 Vicryl to close anterior ro tator cuff tissues.?The deltopectoral groove was then evaluated.? Soft tissues were closed in this area with 0 Vicryl.? We then placed vancomycin powder and Surgiflo.? The subcutaneous tissues were closed using 2-0 Monocryl.? The skin was closed with a running 3-0 Monocryl.? This was followed by Lilliana mccurdy and Chi.? The patient was placed in a slingshot style sling and was returned to recovery room in satisfactory condition where he will be discharged to the floor for postoperative rehabilitation and pain management.? There were no specimens and no complications.? X-rays were obtained intraoperatively, and these demonstrated both appropriate position and reduction of the components as well as excellent fit of the humeral canal. Patient was transferred to the floor for postopera tive rehabilitation and pain management Related Problem List Diagnoses 1. Rotator cuff arthropathy of right shoulder: 2. Primary osteoarthritis, right shoulder:
--- NOTE | 2025-06-16 15:30 | PC.NURSE ---
This nurse took report from MAGDALENO Underwood in PACU at 1530.
--- NOTE | 2025-06-16 15:34 | P.HPUD_ITS ---
Surgery/Procedure H&P Update DATE OF PROCEDURE: June 16, 2025 DATE H&P PERFORMED: 06/06/25 H&P UPDATE INFORMATION: I have reviewed H&P completed within last 30 days, I have examined patient prior to procedure, No changes to prior documentation, H&P is in [facility] EMR on date indicated and Risks and benefits of the procedure reviewed PLANNED PROCEDURE: Operation Date: 06/16/25 10:50 Proposed Procedures p RIGHT Total Reverse Shoulder Arthroplasty(Right) - Maria Teresa Thayer MD Related Problem List Diagnoses 1. Rotator cuff arthropathy of right shoulder: 2. Primary osteoarthritis, right shoulder:
--- NOTE | 2025-06-16 15:35 | ANE.PACU2 ---
Inpatient post-anesthesia follow up: Airway intact: Yes Vital signs: Temperature 98.5 F Pulse Rate 74 Respiratory Rate 17 Blood Pressure 128/70 Pulse Oximetry 97 Oxygen Delivery Me thod Room Air Oxygen Flow Rate 10 Fraction of Inspir ed Oxygen Hydration adequate: Yes Nausea and vomiting: No Pain level: 1 Mental status: Baseline
--- NOTE | 2025-06-16 15:53 | PC.NURSE ---
This nurse assumed care of pt at this time.
--- NOTE | 2025-06-16 16:15 | XR_ITS ---
WS: [id number] Exam: XR shoulder RT min 2V* [id number] Date/Time of Exam: 06/16/2025 4:15 PM Reason For Exam: OR PIC, TOTAL SHOULDER DLP: Comparison 05/04/2025. A reverse shoulder prosthesis has been placed. Postop changes in the adjacent soft tissues.
[2025-06-17] VITALS (9 sets, daily range): BP systolic 127–172; BP diastolic 62–76; PULSE 68–84; RESP 15–20; TEMP 36.9–37; O2SAT 92–97
[2025-06-17] MEDS: oxyCODONE 5 mg IR Tab/Cap PO ×3 (00:35→13:50)
[2025-06-17] MEDS: ceFAZolin 2,000 mg SDV 2000 MG IVP ×2 (03:30→10:49)
[2025-06-17] MEDS: multivitamin therapeutic Tablet 1 TAB PO (07:33)
[2025-06-17] MEDS: LOSARTAN 100 MG TABLET PO (07:33)
[2025-06-17] MEDS: ATORVASTATIN 20 MG TABLET PO (07:33)
--- NOTE | 2025-06-17 13:51 | P.DS_ITS ---
Discharge Providers Date of Admission: 06/16/25 15:03 Date of Discharge: June 17, 2025 Attending Provider at Admission: Maria Teresa Thayer MD Attending Provider at Discharge: Maria Teresa Thayer MD Primary Care Provider: Jonatan Tenorio MD Diagnoses at Discharge Discharge Diagnosis 1. Status post reverse total replacement of right shoulder: 2. Rotator cuff arthropathy of right shoulder: 3. Primary osteoarthritis, right shoulder: Reason for Visit Reason for Visit: M12.811 Brief History: This 59-year-old gentleman presented to the office complaining of severe right shoulder pain. MRI demonstrated absent biceps tendon high riding humeral head complete tear and retraction of the supraspinatus tendon with severe muscle atrophy and only a very tiny portion of the subscapularis tendon remaining. Patient had significant limitations in activities of daily living, and wished to proceed with reverse shoulder arthroplasty. This had been previously discussed. Patient was consented for reverse shoulder arthroplasty. Risks and complications were discussed with him. Consents were signed and questions were answered. He was given further opportunity to the morning of surgery to have further questions answered. Hospital Course Hospital Course This 59-year-old gentleman was admitted under observation status following same- day surgery for right reverse shoulder arthroplasty. He did well overnight. He is neurologically intact. There is minimal swelling. Incision is benign, and the outer dressing is changed. He is tolerating his sling. Plans are made for his discharge to home. Physical Exam Const: COMMON NORMALS: no acute distress, average body habitus, patient oriented x3 and alert GENERAL APPEARANCE: cooperative and comfortable ORIENTATION/CONSCIOUSNESS: Yes awake HENMT: COMMON NORMALS: normocephalic and atraumatic HEAD & SCALP: normocephalic and atraumatic Eye: GENERAL EYE: appearance normal, both eyes and all related structures Chest: COMMONS NORMALS: normal inspection of the chest Resp: COMMON NORMALS: normal respiratory effort EFFORT & INSPECTION: Yes able to speak in complete sentences and Yes symmetric chest movement Extremity: RIGHT UPPER EXTREMITY: Yes shoulder joint (Dressing is changed, and wound is benign, minimal tenderness) Right shoulder: Yes Right shoulder joint inspection exam (No significant ecchymosis), Yes Right shoulder joint ROM exam (Not evaluated) and Yes Right shoulder joint neurovascular exam (Intact distally) Neuro: COMMON NORMALS: patient oriented x3 SENSORIUM/ORIENTATION: Yes alert Psych: COMMON NORMALS: mental status grossly normal APPEARANCE: Yes grossly normal ATTITUDE: Yes calm and Yes engaged ATTENTION/CONCENTRATION: Yes attention grossly intact Skin: COMMON NORMALS: no rashes or lesions noted GENERAL SKIN EXAM: no rashes or lesions noted Urinary Catheter Management: Vieyra: Cath Placed During This Visit: yes, but has since been removed by the nurse Reason for Continuing Indwelling Catheter: Decision to DC Catheter Urinary Catheter Date of Insertion: 06/16/25 Urinary Catheter Time of Insertion: 11:19 Date Urinary Catheter Removed: 06/17/25 Time Urinary Catheter Discontinued: 06:00 Discharge Data Studies Completed and Pending Completed Studies During Hospitalization Category Date Time Status XR shoulder RT min 2V* [id number] Routine Exams 06/16/25 16:15 Completed Pending at discharge Category Date Time Status C-arm Fluoroscopy 21283 Routine Exams 06/16/25 09:14 Stop Req Vitals Last Vital Signs Temp 98.5 F 06/17/25 11:31 Pulse 74 06/17/25 11:31 Resp 17 06/17/25 13:50 BP 127/70 06/17/25 11:31 Pulse Ox 97 06/17/25 13:50 O2 Del Method Room Air 06/17/25 11:31 O2 Flow Rate 10 06/16/25 15:20 Discharge Plan Discharge Patient Disposition: Home Condition: Stable Prescriptions: New oxycodone 5 mg Tablet 5 mg PO Q4H PRN (Reason: Moderate To Severe Pain) 7 Days Qty: 40 0RF Continued atorvastatin 20 mg tablet 20 mg PO DAILY epinephrine 0.3 mg/0.3 mL auto-injector 0.3 mg IM Q4H PRN (Reason: Allergic Reaction) metoprolol tartrate 25 mg tablet 12.5 mg PO BID Qty: 90 0RF Rx Instructions: MUST MAKE APPOINTMENT AND BE SEEN FOR FURTHER REFILLS diclofenac sodium 75 mg tablet,delayed release (DR/EC) 75 mg PO Q12H PRN (Reason: pain) Qty: 20 0RF albuterol sulfate [Ventolin HFA] 90 mcg/actuation HFA aerosol inhaler 1 - 2 puff INHALATION Q4H PRN (Reason: Wheezing) losartan 100 mg tablet 100 mg PO DAILY Discharge Order = DC NOW: Discharge Order (Routine); Ordered 06/17/25 Ordered By: Maria Teresa Thayer Referrals: Maria Teresa Thayer MD [Physician, Orthopedics] - 06/27/25 9:30 am Discharge Diet: Advance as tolerated and Usual diet Discharge Activity: Limit activity as instructed and As per PT/OT instructions Patient Instructions: Oxycodone/Acetaminophen (By mouth), Acute Wound Care (DC), Opioid Safety, Post Anesthesia Care, OZH: Reverse Total Shoulder, Patient Portal & Enrique Instructions Activity Restrictions/Additional Instructions: Please follow total shoulder protocol. You may remove your shoulder immobilizer to shower, but do not actively raise your arm. Do not externally rotate your arm. Keep your arm at your side. You may remove the dressing if it lifts up and leaks, otherwise, please leave it in place until you are seen in the office. Discharge Attestations Time Spent in Discharge Care*: greater than 30 min Specific Discharge Activities: educating patient, documenting/other paperwork and evaluating patient/reviewing data Quality Metrics Clinical Quality Measures [ No reported AMI, CVA or VTE this stay] Coding Level of Care Code Acute Code for Chg Fwd Diagnoses Status post reverse total replacement of right shoulder Z96.611 Laterality: right Rotator cuff arthropathy of right shoulder M12.811 Primary osteoarthritis, right shoulder M19.011
--- NOTE | 2025-06-17 14:02 | PC.NURSE ---
Called Marcial from Physical Therapy he will return and review the total shoulder protocol with patient.
--- NOTE | 2025-06-17 14:03 | PC.NURSE ---
Reached out to [employer] to come and speak with patient before discharge to see if they can help with finances for Physical Therapy at home.
--- NOTE | 2025-06-17 15:05 | PC.OT ---
Pt was seen for OT evaluation 12:14 to 12:19 with patient reporting 4/10 R shoulder aching pain and pt is A+Ox3. Pt reports that he has had multiple shoulder surgeries. He states that understands the one handed ADL techniques and he is provided a handout. Pt is educated on pendulum swings and he is able to replicate exercise with L UE. No OT indicated due to patient's high level of function and discharge status. Pt declines surgeon's protocol post surgery. Pt is assisted to better position R UE when supine in bed. Pt has no questions and has all needs within reach.
== END 2025-06-17 14:58 | disposition home or self-care (01) ==
LOC: MEDSURG 15:04
PROVIDERS: Admitting Provider Specialist; PCP Family Medicine; Visit Provider Specialist
PROC: (CPT 23472; principal; 2025-06-16 10:20)
DX: M19.011 Primary osteoarthritis, right shoulder (principal); M21.821 Other specified acquired deformities of right upper arm; I10 Essential (primary) hypertension; E78.5 Hyperlipidemia, unspecified; F17.210 Nicotine dependence, cigarettes, uncomplicated; Z86.73 Personal history of transient ischemic attack (TIA), and cerebral infarction without residual deficits
CPT/HCPCS: 23472; 51702; 73030; 97110; 97161; 97530; C1713; C1776; G0378; J0131; J0666; J0690; J1100; J1171; J2250; J2371; J2405; J2704; J3010; J3373; J3490; J7030; J9999

== ENCOUNTER → 2025-07-11 08:23 | Outpatient (BNVA) | payer MEDICAID, SELFPAY | PROVIDERS: PCP Family Medicine; Visit Provider Specialist | DX: Z98.890 Other specified postprocedural states (principal); Z96.611 Presence of right artificial shoulder joint | CPT/HCPCS: 73030 ==